=== PATIENT | female | born 2000 | race Caucasian/White ===

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

== ENCOUNTER 2020-04-23 13:19 | Emergency (ER) | payer BC ==
[2020-04-23 13:48] VITALS: BP 139/74; PULSE 72
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
[2020-04-23] MEDS ORDERED: cefTRIAXone 1 GM, Lidocaine 1% 2.1 ML IM ONE ×2 (16:08)
[2020-04-23] MEDS ORDERED: metroNIDAZOLE 250 MG Tab PO ONE (16:10)
[2020-04-23] MEDS ORDERED: Azithromycin 250 MG Tab PO ONE (16:10)
[2020-04-25 12:44] LABS: C.TRACHOMATIS BY TMA Negative (Negative); N.GONORRHOEAE BY TMA Negative (Negative)
== END 2020-04-23 17:01 | disposition home or self-care (01) ==
LOC: DL.ED 13:19
DX: T76.21XA Adult sexual abuse, suspected, initial encounter (principal); F41.9 Anxiety disorder, unspecified; F31.9 Bipolar disorder, unspecified; Z88.1 Allergy status to other antibiotic agents; Z91.018 Allergy to other foods; Z88.6 Allergy status to analgesic agent; Z79.899 Other long term (current) drug therapy
CPT/HCPCS: 80074; 87389; 87491; 87591; 96372; 99283; 99284; A9270; J0696; J2001; 36415

== ENCOUNTER 2020-06-05 00:50 | Emergency (ER) | payer BC ==
[2020-06-05] MEDS ORDERED: Ondansetron 4 MG Tab.DIS PO ONE (00:51)
[2020-06-05 00:58] VITALS: BP 114/94; PULSE 85
[2020-06-05] MEDS ORDERED: Ondansetron 4 MG/2 ML SDV IVPUSH ONE (01:07)
[2020-06-05 01:28] LABS: ANION GAP 15.4 mEq/L (7-13); CHLORIDE,CL 101 mmol/L (98-107); SODIUM,NA 138 mmol/L (136-145)
--- NOTE | 2020-06-05 01:31 | EDM.PDOC ---
"ED HPI GENERAL MEDICAL PROBLEM - General Chief Complaint: Abdominal Pain Stated Complaint: RIGHT SIDE ABD PAIN Time Seen by Provider: 06/05/20 01:18 Source of Information: Reports: Patient, RN, RN Notes Reviewed History Limitations: Reports: No Limitations - History of Present Illness INITIAL COMMENTS - FREE TEXT/NARRATIVE: Patient presents to the ED via personal vehicle with complaints of right lower quadrant pain, nausea, and vomiting. She states the pain began abruptly about one hour ago, and woke her from sleep. She describes the pain as stabbing in nature and relates it is localized the the RLQ; it does not radiate. She had experienced one bout of emesis prior to the initiation of this pain, which she feels was related to a migraine she's had for the past few days, and two bouts of emesis since the pain began. She denies fevers, shaking chills, shortness of breath, chest pain, dyspepsia, dysuria, hematuria, diarrhea, melena, or hematochezia. She does attest to palpitations with the initiation of this pain. She states she has experienced similar pain about three years ago which abruptly stopped with a work-up that was negative for acute processes. She denies changes to her medications. She states she hasn't eaten much over the last few days, but did have some crackers this evening due to nausea from her migraine. Right Lower Abdomen Pain Score (Numeric/FACES): 8 - Related Data Allergies Allergy/AdvReac Type Severity Reaction Status Date / Time amoxicillin Allergy Mild Rash Verified 06/05/20 01:02 gluten Allergy Mild stomach Verified 06/05/20 01:02 pain ibuprofen AdvReac vomiting, Verified 06/05/20 01:02 dizzy Home Meds: Home Meds Erenumab-Aooe [Aimovig Autoinjector] 140 mg SQ Q30D 04/23/20 [History] Venlafaxine HCl [Venlafaxine ER] 150 mg PO DAILY 04/23/20 [History] atenoloL [Atenolol] 25 mg PO DAILY 04/23/20 [History] lamoTRIgine [Lamotrigine] 50 mg PO DAILY 04/23/20 [History] lamoTRIgine [Lamotrigine] 200 mg PO DAILY 04/23/20 [History] norgestimate-ethinyl estradioL [Estarylla 0.25-0.035 mg Tablet] 1 tab PO ASDIRECTED 04/23/20 [History] Desipramine HCl 25 mg PO QPM 06/05/20 [History] Mometasone/Formoterol [Dulera 200 Mcg/5 Mcg Inhaler] 8.8 gm IH BID 06/05/20 [History] Past Medical History - Past Health History Medical/Surgical History: Denies Medical/Surgical History HEENT History: Reports: None Cardiovascular History: Reports: Other (See Below) Other Cardiovascular History: Pots Syndrome (Postural Orthostatic tachycardia syndrome) Respiratory History: Reports: Asthma Gastrointestinal History: Reports: Other (See Below) Other Gastrointestinal History: Gastroparesis Genitourinary History: Reports: None SYNOPTIC METEOROLOGIST History: Reports: Other (See Below) Other SYNOPTIC METEOROLOGIST History: ovarian cyst Musculoskeletal History: Reports: Fibromyalgia, Other (See Below) Other Musculoskeletal History: Lawanda-Damlos Syndrome Neurological History: Reports: None Psychiatric History: Reports: Anxiety, Bipolar, Depression, PTSD Endocrine/Metabolic History: Reports: Obesity/BMI 30+ Hematologic History: Reports: None Immunologic History: Reports: None Oncologic (Cancer) History: Reports: None Dermatologic History: Reports: None - Past Surgical History GI Surgical History: Reports: Cholecystectomy Other GI Surgeries/Procedures: September 2019 Social & Family History - Family History Family Medical History: No Pertinent Family History - Tobacco Use Tobacco Use Status *Q: Never Tobacco User Second Hand Smoke Exposure: No - Caffeine Use Caffeine Use: Reports: Coffee, Soda, Tea - Recreational Drug Use Recreational Drug Use: No - Living Situation & Occupation Living situation: Reports: with Family ED ROS GENERAL - Review of Systems Review Of Systems: Comprehensive ROS is negative, except as noted in HPI. ED EXAM, GI/ABD - Physical Exam Exam: See Below Exam Limited By: No Limitations General Appearance: Alert, WD/WN, No Apparent Distress Eyes: Bilateral: Normal Appearance, EOMI Respiratory/Chest: No Respiratory Distress, Lungs Clear, Normal Breath Sounds, No Accessory Muscle Use, Chest Non-Tender Cardiovascular: Normal Peripheral Pulses, Regular Rate, Rhythm, No Edema, No Gallop, No JVD, No Murmur, No Rub GI/Abdominal Exam: Soft, Non-Tender, No Distention, No Mass, Pelvis Stable, Abnormal Bowel Sounds (Hypoactive x4). No: Guarding, Rigid, Rebound (Female) Exam: Deferred Rectal (Female) Exam: Deferred Back Exam: Normal Inspection, Full Range of Motion, CVA Tenderness (R). No: CVA Tenderness (L) Extremities: Normal Inspection, Normal Range of Motion, Non-Tender, No Pedal Edema, Normal Capillary Refill Neurological: Alert, Oriented, CN II-XII Intact, Normal Cognition, Normal Gait, No Motor/Sensory Deficits Psychiatric: Depressed Mood, Flat Affect Skin Exam: Warm, Dry, Intact, Normal Color, No Rash. No: Ecchymosis, Erythema, Mottled, Pallor, Petechiae Course - Vital Signs Last Recorded V/S: Last Vital Signs Temp 96.8 F L 06/05/20 00:52 Pulse 85 06/05/20 00:52 Resp 18 06/05/20 00:52 BP 114/94 H 06/05/20 00:52 Pulse Ox 97 06/05/20 00:52 - Orders/Labs/Meds Orders: Active Orders 24 hr Category Date Time Status Sodium Chloride 0.9% [Normal Saline] 1,000 ml Med 06/05/20 02:41 Active IV .BOLUS Medication Orders Sodium Chloride (Normal Saline) 1,000 mls @ 999 mls/hr IV .BOLUS ONE Stop: 06/05/20 03:41 Last Admin: 06/05/20 02:46 Dose: 999 mls/hr Documented by: ROMEL Labs: Laboratory Tests 06/05/20 06/05/20 06/05/20 Range/Units 00:55 00:55 00:55 WBC (5.0-10.0) 10^3/uL RBC (4.2-5.4) 10^6/uL Hgb (12.0-16.0) g/dL Hct (37.0-47.0) % MCV (80-100) fL MCH (27.0-34.0) pg MCHC (33.0-35.0) g/dL Plt Count (150-450) 10^3/uL Neut % (Auto) (42.2-75.2) % Lymph % (Auto) (20.5-50.1) % [place] % (Auto) (2-8) % Eos % (Auto) (1.0-3.0) % Baso % (Auto) (0.0-1.0) % Sodium (136-145) mmol/L Potassium (3.5-5.1) mmol/L Chloride (98-107) mmol/L Carbon Dioxide (21-32) mmol/L Anion Gap (7-13) mEq/L BUN (7-18) mg/dL Creatinine (0.55-1.02) mg/dL Est Cr Clr Drug Dosing mL/min Estimated GFR (MDRD) BUN/Creatinine Ratio (No establ ref range) Glucose (74-99) mg/dL Hemoglobin A1c (<5.7) % Calcium (8.5-10.1) mg/dL Phosphorus (2.6-4.7) mg/dL Magnesium (1.8-2.4) mg/dL Total Bilirubin (0.2-1.0) mg/dL AST (15-37) U/L ALT (14-59) U/L Alkaline Phosphatase (46-116) U/L C-Reactive Protein (0.0-0.9) mg/dL Total Protein (6.4-8.2) g/dL Albumin (3.4-5.0) g/dL Globulin Albumin/Globulin Ratio Urine Color Dark yellow (YELLOW) Urine Appearance Slightly cloudy (CLEAR) Urine pH 5.5 (5.0-9.0) Ur Specific Decker >= 1.030 (1.005-1.030) Urine Protein 30 H (NEGATIVE) Urine Glucose (UA) Negative (NEGATIVE) Urine Ketones Trace H (NEGATIVE) Urine Occult Blood Negative (NEGATIVE) Urine Nitrite Negative (NEGATIVE) Urine Bilirubin Negative (NEGATIVE) Urine Urobilinogen 0.2 (0.2-1.0) mg/dL Ur Leukocyte Esterase Negative (NEGATIVE) Urine RBC 0-5 /HPF Urine WBC 0-5 (0-5/HPF) /HPF Ur Epithelial Cells Few (NOT SEEN) /HPF Calcium Oxalate Crystal Many H (NOT SEEN) /HPF Amorphous Sediment Occasional (NOT SEEN) /HPF Urine Bacteria Rare (0-FEW/HPF) /HPF Urine Mucus Few H (NOT SEEN) /LPF Urine HCG, Qual Negative Urine Opiates Screen Negative (NEGATIVE) Ur Oxycodone Screen Negative (NEGATIVE) Urine Methadone Screen Negative (NEGATIVE) Ur Barbiturates Screen Negative (NEGATIVE) U Tricyclic Antidepress Positive H (NEGATIVE) Ur Phencyclidine Scrn Positive H (NEGATIVE) Ur Amphetamine Screen Negative (NEGATIVE) U Methamphetamines Scrn Negative (NEGATIVE) Urine MDMA Screen Negative (NEGATIVE) U Benzodiazepines Scrn Positive H (NEGATIVE) Urine Cocaine Screen Negative (NEGATIVE) U Marijuana (THC) Screen Negative (NEGATIVE) Ethyl Alcohol (0) mg/dL 06/05/20 06/05/20 06/05/20 Range/Units 01:03 01:03 01:03 WBC 9.1 (5.0-10.0) 10^3/uL RBC 4.85 (4.2-5.4) 10^6/uL Hgb 14.0 D (12.0-16.0) g/dL Hct 41.1 (37.0-47.0) % MCV 84.7 D (80-100) fL MCH 28.9 (27.0-34.0) pg MCHC 34.1 (33.0-35.0) g/dL Plt Count 352 (150-450) 10^3/uL Neut % (Auto) 61.2 (42.2-75.2) % Lymph % (Auto) 30.4 (20.5-50.1) % [place] % (Auto) 7.8 (2-8) % Eos % (Auto) 0.4 L (1.0-3.0) % Baso % (Auto) 0.2 (0.0-1.0) % Sodium 138 (136-145) mmol/L Potassium 3.4 L (3.5-5.1) mmol/L Chloride 101 (98-107) mmol/L Carbon Dioxide 25 (21-32) mmol/L Anion Gap 15.4 H (7-13) mEq/L BUN 16 (7-18) mg/dL Creatinine 0.90 (0.55-1.02) mg/dL Est Cr Clr Drug Dosing 90.47 mL/min Estimated GFR (MDRD) > 60 BUN/Creatinine Ratio 17.8 (No establ ref range) Glucose 120 H (74-99) mg/dL Hemoglobin A1c 5.4 (<5.7) % Calcium 8.9 (8.5-10.1) mg/dL Phosphorus 3.0 (2.6-4.7) mg/dL Magnesium 1.9 (1.8-2.4) mg/dL Total Bilirubin 0.3 (0.2-1.0) mg/dL AST 18 (15-37) U/L ALT 25 (14-59) U/L Alkaline Phosphatase 76 (46-116) U/L C-Reactive Protein 2.9 H (0.0-0.9) mg/dL Total Protein 7.9 (6.4-8.2) g/dL Albumin 3.5 (3.4-5.0) g/dL Globulin 4.4 Albumin/Globulin Ratio 0.8 Urine Color (YELLOW) Urine Appearance (CLEAR) Urine pH (5.0-9.0) Ur Specific Decker (1.005-1.030) Urine Protein (NEGATIVE) Urine Glucose (UA) (NEGATIVE) Urine Ketones (NEGATIVE) Urine Occult Blood (NEGATIVE) Urine Nitrite (NEGATIVE) Urine Bilirubin (NEGATIVE) Urine Urobilinogen (0.2-1.0) mg/dL Ur Leukocyte Esterase (NEGATIVE) Urine RBC /HPF Urine WBC (0-5/HPF) /HPF Ur Epithelial Cells (NOT SEEN) /HPF Calcium Oxalate Crystal (NOT SEEN) /HPF Amorphous Sediment (NOT SEEN) /HPF Urine Bacteria (0-FEW/HPF) /HPF Urine Mucus (NOT SEEN) /LPF Urine HCG, Qual Urine Opiates Screen (NEGATIVE) Ur Oxycodone Screen (NEGATIVE) Urine Methadone Screen (NEGATIVE) Ur Barbiturates Screen (NEGATIVE) U Tricyclic Antidepress (NEGATIVE) Ur Phencyclidine Scrn (NEGATIVE) Ur Amphetamine Screen (NEGATIVE) U Methamphetamines Scrn (NEGATIVE) Urine MDMA Screen (NEGATIVE) U Benzodiazepines Scrn (NEGATIVE) Urine Cocaine Screen (NEGATIVE) U Marijuana (THC) Screen (NEGATIVE) Ethyl Alcohol < 3 (0) mg/dL Meds: Medications Generic Name Dose Route Start Last Admin Trade Name Freq PRN Reason Stop Dose Admin Sodium Chloride 1,000 mls @ 999 mls/hr 06/05/20 02:41 06/05/20 02:46 Normal Saline IV 06/05/20 03:41 999 mls/hr .BOLUS ONE Administration Discontinued Medications Generic Name Dose Route Start Last Admin Trade Name Freq PRN Reason Stop Dose Admin Hydromorphone HCl 1 mg 06/05/20 01:40 06/05/20 01:44 Dilaudid IVPUSH 06/05/20 01:41 1 mg ONETIME ONE Administration Metoclopramide HCl 10 mg 06/05/20 02:45 06/05/20 02:48 Reglan IVPUSH 06/05/20 02:46 10 mg ONETIME ONE Administration Ondansetron HCl 4 mg 06/05/20 01:07 06/05/20 01:12 Zofran IVPUSH 06/05/20 01:08 4 mg ONETIME ONE Administration Ondansetron HCl Confirm 06/05/20 02:56 Zofran Odt Administered 06/05/20 02:57 Dose 12 mg .ROUTE .STK-MED ONE Tamsulosin HCl 0.4 mg 06/05/20 02:41 06/05/20 02:46 Flomax PO 06/05/20 02:42 0.4 mg ONETIME ONE Administration - Radiology Interpretation Free Text/Narrative:: [facility] Final Radiology Report Call: [phone] assistance Online chat: [email or web address] Name: OWEN ADEN Age: 19Years F Date: 06/05/2020 SSN: -- : 2000 Study: CT ABDOMEN PELVIS WO CONT Requesting Physician: Anai Hodges Images: [id number] Addl Studies: Provided Clinical History: RLQ pain; R CVA pain Contrast: Without Contrast Medium: Contrast Amount: Contrast Method: Page 1 of 2 PROCEDURE INFORMATION: Exam: CT Abdomen And Pelvis Without Contrast Exam date and time: 06/05/2020 1:51 AM Age: 19 years old Clinical indication: Other: Rlq pain; R CVA pain TECHNIQUE: Imaging protocol: Computed tomography of the abdomen and pelvis without contrast. Radiation optimization: All CT scans at this facility use at least one of these dose optimization techniques: automated exposure control; mA and/or kV adjustment per patient size (includes targeted exams where dose is matched to clinical indication); or iterative reconstruction. COMPARISON: No relevant prior studies available. FINDINGS: Liver: Normal. No mass. Gallbladder and bile ducts: Normal. No calcified stones. No ductal dilation. Pancreas: Normal. No ductal dilation. Spleen: Normal. No splenomegaly. Adrenal glands: Normal. No mass. Kidneys and ureters: The right kidney appears to be slightly enlarged and lower in attenuation within the left kidney suggesting there could be renal edema. Correlate for possible pyelonephritis. No hydronephrosis or stone identified. Stomach and bowel: Unremarkable. No obstruction. No mucosal thickening. Appendix: No evidence of appendicitis. Intraperitoneal space: Unremarkable. No free air. No significant fluid collection. Vasculature: Unremarkable. No abdominal aortic aneurysm. Lymph nodes: Unremarkable. No enlarged lymph nodes. Urinary bladder: Unremarkable as visualized. OWEN ADEN | Final Radiology Report CONFIDENTIALITY STATEMENT This report is intended only for use by the referring physician, and only in accordance with law. If you received this in error, call [phone]. Page 2 of 2 Reproductive: Unremarkable as visualized. Bones/joints: Unremarkable. No acute fracture. Soft tissues: Unremarkable. IMPRESSION: 1. Possible right-sided pyelonephritis. No hydronephrosis or stone identified. Thank you for allowing us to participate in the care of your patient. Dictated and Authenticated by: Saad Rodgers MD 06/05/2020 2:29 AM Central Time ([place] & [place]) - Re-Assessments/Exams Free Text/Narrative Re-Assessment/Exam: 06/05/20 Patient resting comfortably following analgesic and antiemetic. CT unremarkable for obstruction or hydronephrosis, but right kidney is mildly enlarged when compared to the left. Given calcium oxylate in urine and elevated CRP in conjunction with her physical exam, will treat for kidney stone. Patient given Flomax and NS 1L bolus x1 here and sent home with Flomax and Zofran. Patient instructed to follow up in clinic in 3 days to recheck blood work, or sooner should she develop dysuria, hematuria, fever, or shaking chills. Patient verbalized understanding and agreement with the plan of care. Departure - Departure Time of Disposition: 03:21 Disposition: Home, Self-Care 01 Condition: Good Clinical Impression: Calcium oxalate crystals present in urine, Abdominal pain, RLQ (right lower quadrant) Vomiting Qualifiers: Vomiting type: unspecified Vomiting Intractability: non-intractable Nausea presence: with nausea Qualified Code(s): R11.2 - Nausea with vomiting, unspecified - Discharge Information *PRESCRIPTION DRUG MONITORING PROGRAM REVIEWED*: Not Applicable *COPY OF PRESCRIPTION DRUG MONITORING REPORT IN PATIENT BABS: Not Applicable Instructions: Nausea and Vomiting, Adult, [id number] Forms: ED Department Discharge Additional Instructions: Rx: Ondansetron Rx: Flomax Drink a lot of water to stay hydrated and flush out kidneys. Follow up with your primary care provider in three days to recheck blood work, or sooner should you develop worsening abdominal pain, pain with urination, blood in your urine, fever, or shaking chills. You may take acetaminophen (Tylenol) 650 mg every six hours, as pain persists. Sepsis Event Note (ED) - Evaluation Sepsis Screening Result: No Definite Risk - Focused Exam Vital Signs: Vital Signs Temp Pulse Resp BP Pulse Ox 06/05/20 00:52 96.8 F L 85 18 114/94 H 97 - My Orders Last 24 Hours: My Active Orders 06/05/20 02:41 Sodium Chloride 0.9% [Normal Saline] 1,000 ml IV .BOLUS - Assessment/Plan Last 24 Hours: My Active Orders 06/05/20 02:41 Sodium Chloride 0.9% [Normal Saline] 1,000 ml IV .BOLUS"
[2020-06-05] MEDS ORDERED: HYDROmorphone 1 MG/ML Syringe IVPUSH ONE (01:40)
[2020-06-05 01:53] LABS: HEMOGLOBIN A1C 5.4 % (<5.7)
--- NOTE | 2020-06-05 02:29 | CT ---
PROCEDURE INFORMATION: Exam: CT Abdomen And Pelvis Without Contrast Exam date and time: 06/05/2020 1:51 AM Age: 19 years old Clinical indication: Other: Rlq pain; R CVA pain TECHNIQUE: Imaging protocol: Computed tomography of the abdomen and pelvis without contrast. Radiation optimization: All CT scans at this facility use at least one of these dose optimization techniques: automated exposure control; mA and/or kV adjustment per patient size (includes targeted exams where dose is matched to clinical indication); or iterative reconstruction. COMPARISON: No relevant prior studies available. FINDINGS: Liver: Normal. No mass. Gallbladder and bile ducts: Normal. No calcified stones. No ductal dilation. Pancreas: Normal. No ductal dilation. Spleen: Normal. No splenomegaly. Adrenal glands: Normal. No mass. Kidneys and ureters: The right kidney appears to be slightly enlarged and lower in attenuation within the left kidney suggesting there could be renal edema. Correlate for possible pyelonephritis. No hydronephrosis or stone identified. Stomach and bowel: Unremarkable. No obstruction. No mucosal thickening. Appendix: No evidence of appendicitis. Intraperitoneal space: Unremarkable. No free air. No significant fluid collection. Vasculature: Unremarkable. No abdominal aortic aneurysm. Lymph nodes: Unremarkable. No enlarged lymph nodes. Urinary bladder: Unremarkable as visualized. Reproductive: Unremarkable as visualized. Bones/joints: Unremarkable. No acute fracture. Soft tissues: Unremarkable. IMPRESSION: 1. Possible right-sided pyelonephritis. No hydronephrosis or stone identified.
[2020-06-05] MEDS ORDERED: Tamsulosin 0.4 MG Cap.ER PO ONE (02:41)
[2020-06-05] MEDS ORDERED: Sodium Chloride 0.9% 1,000 ML IV ONE (02:41)
[2020-06-05] MEDS ORDERED: Metoclopramide 10 MG/2 ML SDV IVPUSH ONE (02:45)
[2020-06-05] MEDS ORDERED: Ondansetron 4 MG Tab.DIS ONE (02:56)
== END 2020-06-05 03:50 | disposition home or self-care (01) ==
LOC: DL.ED 00:50
DX: R10.31 Right lower quadrant pain (principal); R11.2 Nausea with vomiting, unspecified; R82.998 Other abnormal findings in urine; J45.909 Unspecified asthma, uncomplicated; F41.9 Anxiety disorder, unspecified; F31.9 Bipolar disorder, unspecified; E66.9 Obesity, unspecified; Z68.41 Body mass index [BMI] 40.0-44.9, adult; Z88.6 Allergy status to analgesic agent; Z88.1 Allergy status to other antibiotic agents; Z91.018 Allergy to other foods; Z79.899 Other long term (current) drug therapy
CPT/HCPCS: 36415; 74176; 80053; 80305; 80307; 81001; 81025; 83036; 83735; 84100; 85025; 86140; 96374; 96375; 99284; A9270; J1170; J2405; J2765; J7030

== ENCOUNTER 2020-08-02 12:22 | Emergency (ER) | payer BC, MEDICAID ==
[2020-08-02 12:38] VITALS: BP 130/63; PULSE 75
[2020-08-02 12:59] LABS: ANION GAP 14.7 mEq/L (7-13); CHLORIDE,CL 104 mmol/L (98-107); SODIUM,NA 139 mmol/L (136-145)
[2020-08-02 13:00] LABS: MDMA (ECSTASY), URINE NEGATIVE (NEGATIVE); METHADONE,URINE NEGATIVE (NEGATIVE); METHAMPHETAMINES,URINE NEGATIVE (NEGATIVE)
[2020-08-02 13:01] LABS: AMPHETAMINES,URINE NEGATIVE (NEGATIVE); BARBITURATES,URINE NEGATIVE (NEGATIVE); BENZODIAZEPINE,URINE NEGATIVE (NEGATIVE); OPIATES,URINE NEGATIVE (NEGATIVE); OXYCODONE,URINE NEGATIVE (NEGATIVE); PHENCYCLIDINE,URINE NEGATIVE (NEGATIVE); TCA,URINE NEGATIVE (NEGATIVE)
--- NOTE | 2020-08-02 13:02 | EDM.PDOC ---
ED HPI GENERAL MEDICAL PROBLEM - General Source of Information: Reports: Patient History Limitations: Reports: No Limitations - History of Present Illness Onset: Today Duration: Minutes: (30 min) Quality: Reports: Sharp Improves with: Reports: None Worsens with: Reports: None Associated Symptoms: Reports: Headaches Headache Pain Score (Numeric/FACES): 7 - General Chief Complaint: Syncope Stated Complaint: FAINTING, HEADACHE, CHEST PAIN Time Seen by Provider: 08/02/20 12:52 - History of Present Illness INITIAL COMMENTS - FREE TEXT/NARRATIVE: 20 y/o F c/o 3-4 syncopal episodes last night between 2 and 3 am. Pt was not evaluated by anyone after her syncopal episodes. Today while in class around 12pm pt developed CP center chest non radiating, sharp, constant and 7/10. Pt also c/o diffuse bourgeois since the onset of cp. Pt has had a hx of GI problems for over a year but has had no diagnoses. Pt has had her gall bladder out in September of last year. [facility]. Primary care in [place] with Shivani Hooper. Pts GI issues leaves her with nausea and vomiting on a fairly consistent basis. Denies vision prob, diff swallowing, sob, blood in emesis or stool, diff voiding, diff with urination, injury from syncope. (Jorge Alberto Sprague) - Related Data Allergies Allergy/AdvReac Type Severity Reaction Status Date / Time amoxicillin Allergy Mild Rash Verified 08/02/20 12:42 gluten Allergy Mild stomach Verified 08/02/20 12:42 pain ibuprofen AdvReac vomiting, Verified 08/02/20 12:42 dizzy Home Meds: Home Meds Erenumab-Aooe [Aimovig Autoinjector] 140 mg SQ Q30D 04/23/20 [History] Venlafaxine HCl [Venlafaxine ER] 150 mg PO DAILY 04/23/20 [History] atenoloL [Atenolol] 25 mg PO BEDTIME 04/23/20 [History] norgestimate-ethinyl estradioL [Estarylla 0.25-0.035 mg Tablet] 1 tab PO ASDIRECTED 04/23/20 [History] Mometasone/Formoterol [Dulera 200 Mcg/5 Mcg Inhaler] 2 puff IH BID 06/05/20 [History] Acetaminophen 500 mg PO Q6HR PRN 08/02/20 [History] Albuterol [Proventil Neb Soln] 2.5 mg INH Q4HR PRN 08/02/20 [History] Albuterol [Ventolin HFA] 2 puff INH Q6HR PRN 08/02/20 [History] Cariprazine HCl [Vraylar] 3 mg PO DAILY 08/02/20 [History] Metoclopramide [Reglan] 5 mg PO Q8H 08/02/20 [History] Ondansetron [Ondansetron ODT] 4 mg PO Q6H PRN 08/02/20 [History] Topiramate [Topamax] 50 mg PO DAILY 08/02/20 [History] Past Medical History - Past Health History Medical/Surgical History: Denies Medical/Surgical History HEENT History: Reports: None Cardiovascular History: Reports: Other (See Below) Other Cardiovascular History: Pots Syndrome (Postural Orthostatic tachycardia syndrome) Respiratory History: Reports: Asthma Gastrointestinal History: Reports: Other (See Below) Other Gastrointestinal History: Gastroparesis Genitourinary History: Reports: None MANAGER TRANSIT History: Reports: Other (See Below) Other MANAGER TRANSIT History: ovarian cyst Musculoskeletal History: Reports: Fibromyalgia, Other (See Below) Other Musculoskeletal History: Lawanda-Damlos Syndrome Neurological History: Reports: None Psychiatric History: Reports: Anxiety, Bipolar, Depression, PTSD Endocrine/Metabolic History: Reports: Obesity/BMI 30+ Hematologic History: Reports: None Immunologic History: Reports: None Oncologic (Cancer) History: Reports: None Dermatologic History: Reports: None - Past Surgical History GI Surgical History: Reports: Cholecystectomy Other GI Surgeries/Procedures: September 2019 Social & Family History - Family History Family Medical History: No Pertinent Family History - Caffeine Use Caffeine Use: Reports: Coffee, Soda, Tea - Living Situation & Occupation Living situation: Reports: with Family ED ROS GENERAL - Review of Systems Review Of Systems: Comprehensive ROS is negative, except as noted in HPI. - Physical Exam Exam: See Below Exam Limited By: No Limitations General Appearance: Alert, WD/WN, No Apparent Distress Eye Exam: Bilateral Eye: PERRL Ears: Normal External Exam, Normal Canal, Hearing Grossly Normal, Normal TMs Nose: Normal Inspection, Normal Mucosa, No Blood Throat/Mouth: Normal Inspection, Normal Lips, Normal Teeth, Normal Gums, Normal Oropharynx, Normal Voice, No Airway Compromise Head Exam: Atraumatic, Normocephalic Neck: Normal Inspection, Supple, Non-Tender, Full Range of Motion Respiratory/Chest: No Respiratory Distress, Lungs Clear, Normal Breath Sounds, No Accessory Muscle Use, Chest Non-Tender Cardiovascular: Normal Peripheral Pulses, Regular Rate, Rhythm, No Edema, No Gallop, No JVD, No Murmur, No Rub GI/Abdominal: Normal Bowel Sounds, Soft, Tender (R upper quadrant) (Female) Exam: Deferred Rectal (Female) Exam: Deferred Neuro Exam (Abbreviated): Alert, Oriented, CN II-XII Intact, Normal Cognition, Normal Gait, Normal Reflexes, No Motor/Sensory Deficits Back Exam: Normal Inspection, Full Range of Motion, NT Extremities: Normal Inspection, Normal Range of Motion, Non-Tender, No Pedal Edema, Normal Capillary Refill Psychiatric: Normal Affect, Normal Mood Skin Exam: Warm, Dry, Intact, Normal Color, No Rash Course - Vital Signs Last Recorded V/S: Last Vital Signs Temp 36.4 C 08/02/20 12:33 Pulse 75 08/02/20 12:33 Resp 20 08/02/20 12:33 BP 130/63 08/02/20 12:33 Pulse Ox 98 08/02/20 12:33 - Orders/Labs/Meds Orders: Active Orders 24 hr Category Date Time Status EKG Documentation Completion [RC] STAT Care 08/02/20 12:31 Active Labs: Laboratory Tests 08/02/20 08/02/20 08/02/20 Range/Units 12:32 12:32 12:47 WBC 7.8 (5.0-10.0) 10^3/uL RBC 4.54 (4.2-5.4) 10^6/uL Hgb 13.3 (12.0-16.0) g/dL Hct 39.4 (37.0-47.0) % MCV 86.8 (80-100) fL MCH 29.3 (27.0-34.0) pg MCHC 33.8 (33.0-35.0) g/dL Plt Count 316 (150-450) 10^3/uL Neut % (Auto) 71.7 (42.2-75.2) % Lymph % (Auto) 20.8 (20.5-50.1) % Dyer % (Auto) 7.3 (2-8) % Eos % (Auto) 0.1 L (1.0-3.0) % Baso % (Auto) 0.1 (0.0-1.0) % Sodium 139 (136-145) mmol/L Potassium 3.7 (3.5-5.1) mmol/L Chloride 104 (98-107) mmol/L Carbon Dioxide 24 (21-32) mmol/L Anion Gap 14.7 H (7-13) mEq/L BUN 12 (7-18) mg/dL Creatinine 0.89 (0.55-1.02) mg/dL Est Cr Clr Drug Dosing 90.73 mL/min Estimated GFR (MDRD) > 60 BUN/Creatinine Ratio 13.5 (No establ ref range) Glucose 97 (74-99) mg/dL Calcium 9.1 (8.5-10.1) mg/dL Total Bilirubin 0.2 (0.2-1.0) mg/dL AST 25 (15-37) U/L ALT 40 (14-59) U/L Alkaline Phosphatase 77 (46-116) U/L Troponin I < 0.017 (0.000-0.056) ng/mL Total Protein 7.9 (6.4-8.2) g/dL Albumin 3.6 (3.4-5.0) g/dL Globulin 4.3 Albumin/Globulin Ratio 0.8 Urine Color Yellow (YELLOW) Urine Appearance Slightly cloudy (CLEAR) Urine pH 7.0 (5.0-9.0) Ur Specific Felicity 1.025 (1.005-1.030) Urine Protein Negative (NEGATIVE) Urine Glucose (UA) Negative (NEGATIVE) Urine Ketones Negative (NEGATIVE) Urine Occult Blood Small H (NEGATIVE) Urine Nitrite Negative (NEGATIVE) Urine Bilirubin Negative (NEGATIVE) Urine Urobilinogen 1.0 (0.2-1.0) mg/dL Ur Leukocyte Esterase Negative (NEGATIVE) Urine RBC 0-5 /HPF Urine WBC 0-5 (0-5/HPF) /HPF Ur Epithelial Cells Few (NOT SEEN) /HPF Amorphous Sediment Many H (NOT SEEN) /HPF Urine Bacteria Few (0-FEW/HPF) /HPF Urine Mucus Few H (NOT SEEN) /LPF Urine HCG, Qual Urine Opiates Screen (NEGATIVE) Ur Oxycodone Screen (NEGATIVE) Urine Methadone Screen (NEGATIVE) Ur Barbiturates Screen (NEGATIVE) U Tricyclic Antidepress (NEGATIVE) Ur Phencyclidine Scrn (NEGATIVE) Ur Amphetamine Screen (NEGATIVE) U Methamphetamines Scrn (NEGATIVE) Urine MDMA Screen (NEGATIVE) U Benzodiazepines Scrn (NEGATIVE) Urine Cocaine Screen (NEGATIVE) U Marijuana (THC) Screen (NEGATIVE) 08/02/20 08/02/20 Range/Units 12:47 12:47 WBC (5.0-10.0) 10^3/uL RBC (4.2-5.4) 10^6/uL Hgb (12.0-16.0) g/dL Hct (37.0-47.0) % MCV (80-100) fL MCH (27.0-34.0) pg MCHC (33.0-35.0) g/dL Plt Count (150-450) 10^3/uL Neut % (Auto) (42.2-75.2) % Lymph % (Auto) (20.5-50.1) % Dyer % (Auto) (2-8) % Eos % (Auto) (1.0-3.0) % Baso % (Auto) (0.0-1.0) % Sodium (136-145) mmol/L Potassium (3.5-5.1) mmol/L Chloride (98-107) mmol/L Carbon Dioxide (21-32) mmol/L Anion Gap (7-13) mEq/L BUN (7-18) mg/dL Creatinine (0.55-1.02) mg/dL Est Cr Clr Drug Dosing mL/min Estimated GFR (MDRD) BUN/Creatinine Ratio (No establ ref range) Glucose (74-99) mg/dL Calcium (8.5-10.1) mg/dL Total Bilirubin (0.2-1.0) mg/dL AST (15-37) U/L ALT (14-59) U/L Alkaline Phosphatase (46-116) U/L Troponin I (0.000-0.056) ng/mL Total Protein (6.4-8.2) g/dL Albumin (3.4-5.0) g/dL Globulin Albumin/Globulin Ratio Urine Color (YELLOW) Urine Appearance (CLEAR) Urine pH (5.0-9.0) Ur Specific Felicity (1.005-1.030) Urine Protein (NEGATIVE) Urine Glucose (UA) (NEGATIVE) Urine Ketones (NEGATIVE) Urine Occult Blood (NEGATIVE) Urine Nitrite (NEGATIVE) Urine Bilirubin (NEGATIVE) Urine Urobilinogen (0.2-1.0) mg/dL Ur Leukocyte Esterase (NEGATIVE) Urine RBC /HPF Urine WBC (0-5/HPF) /HPF Ur Epithelial Cells (NOT SEEN) /HPF Amorphous Sediment (NOT SEEN) /HPF Urine Bacteria (0-FEW/HPF) /HPF Urine Mucus (NOT SEEN) /LPF Urine HCG, Qual Negative Urine Opiates Screen Negative (NEGATIVE) Ur Oxycodone Screen Negative (NEGATIVE) Urine Methadone Screen Negative (NEGATIVE) Ur Barbiturates Screen Negative (NEGATIVE) U Tricyclic Antidepress Negative (NEGATIVE) Ur Phencyclidine Scrn Negative (NEGATIVE) Ur Amphetamine Screen Negative (NEGATIVE) U Methamphetamines Scrn Negative (NEGATIVE) Urine MDMA Screen Negative (NEGATIVE) U Benzodiazepines Scrn Negative (NEGATIVE) Urine Cocaine Screen Negative (NEGATIVE) U Marijuana (THC) Screen Negative (NEGATIVE) Meds: Medications Discontinued Medications Generic Name Dose Route Start Last Admin Trade Name Freq PRN Reason Stop Dose Admin Al Hydroxide/Mg Hydroxide 30 ml 08/02/20 13:25 08/02/20 13:31 Gi Cocktail PO 08/02/20 13:26 30 ml ONETIME ONE Administration - Re-Assessments/Exams Free Text/Narrative Re-Assessment/Exam: 08/02/20 13:52 Pt reports complete relief in CP after the administration of GI cocktail. Reviewed previous Abd CT with Doctor Jabari Gonzalez in house and determined previously dictated CT report from May last year was mistakenly read as having a normal gallbladder. Pt reports her gallbladder was taken out in September of last year. Dr Gonzalez confirmed pt has no gall bladder. (Jorge Alberto Sprague) Free Text/Narrative Re-Assessment/Exam: 08/02/20 14:05 I have examined the patient. I have discussed findings and treatment plan with the PA student. I agree with the assessment and plan in the following students note. (Heránn Bunn) Departure - Departure Time of Disposition: 13:57 Condition: Good - Discharge Information *PRESCRIPTION DRUG MONITORING PROGRAM REVIEWED*: Not Applicable *COPY OF PRESCRIPTION DRUG MONITORING REPORT IN PATIENT BABS: Not Applicable - Departure Disposition: Home, Self-Care 01 Clinical Impression: Abdominal pain Qualifiers: Qualified Code(s): S09.90XA - Unspecified injury of head, initial encounter - Discharge Information Instructions: Abdominal Pain, Adult, [id number] Forms: ED Department Discharge Additional Instructions: Follow up with your GI doctor as soon as possible. Follow up with your primary and let him know about your recent symptom development. Sepsis Event Note (ED) - Evaluation Sepsis Screening Result: No Definite Risk - Focused Exam Vital Signs: Vital Signs Temp Pulse Resp BP Pulse Ox 08/02/20 12:33 36.4 C 75 20 130/63 98 - My Orders Last 24 Hours: My Active Orders 08/02/20 12:31 EKG Documentation Completion [RC] STAT - Assessment/Plan Last 24 Hours: My Active Orders 08/02/20 12:31 EKG Documentation Completion [RC] STAT
[2020-08-02] MEDS ORDERED: GI Cocktail Oral Solution 30 ML PO ONE (13:25)
== END 2020-08-02 14:10 | disposition home or self-care (01) ==
LOC: DL.ED 12:22
DX: R10.11 Right upper quadrant pain (principal); J45.909 Unspecified asthma, uncomplicated; E66.9 Obesity, unspecified; Z68.41 Body mass index [BMI] 40.0-44.9, adult; Z88.0 Allergy status to penicillin; Z91.048 Other nonmedicinal substance allergy status; Z88.6 Allergy status to analgesic agent; Z79.899 Other long term (current) drug therapy
CPT/HCPCS: 36415; 80053; 80305; 81001; 81025; 84484; 85025; 93005; 99285; A9270; 99284

== ENCOUNTER 2020-08-13 10:41 | Emergency (ER) | payer BC ==
[2020-08-13] MEDS: Sodium Chloride 0.9% 1,000 ML IV ONE (10:57)
[2020-08-13] MEDS: Activated Charcoal/Water Susp 50 GM/240 ML Tube PO ONE (10:57)
[2020-08-13] MEDS: Sodium Chloride 0.9% 10 ML Syringe FLUSH PRN (10:58)
[2020-08-13 11:02] VITALS: BP 124/76; PULSE 74
[2020-08-13 11:20] LABS: ANION GAP 13.7 mEq/L (7-13); CHLORIDE,CL 103 mmol/L (98-107); SODIUM,NA 140 mmol/L (136-145)
[2020-08-13 11:22] LABS: ACETAMINOPHEN 144 ug/mL (10-30 (Therapeutic)); PTT,PARTIAL THROMBOPLSTIN TIME 27.9 SEC (22.0-34.0)
[2020-08-13] MEDS ORDERED: DEXTROSE 5% IV ONE ×6 (11:34→12:37)
[2020-08-13] MEDS ORDERED: WATER IV ONE ×6 (11:34→12:37)
[2020-08-13] MEDS ORDERED: ACETYLCYSTEINE IV ONE ×6 (11:34→12:37)
[2020-08-13] MEDS: Acetylcysteine 15,000 MG in Dextrose 5% in Water 200 ML IV ONE ×2 (12:02)
--- NOTE | 2020-08-13 12:02 | EDM.PDOCBH ---
ED HPI GENERAL MEDICAL PROBLEM - General Chief Complaint: Behavioral/Psych Stated Complaint: Tylenol overdose Time Seen by Provider: 08/13/20 11:00 Source of Information: Reports: Patient, Old Records, RN, RN Notes Reviewed, Other (College counselor) History Limitations: Reports: No Limitations - History of Present Illness INITIAL COMMENTS - FREE TEXT/NARRATIVE: Pt presented to ER with her college counselor initially reporting that she took 13 tablets of Tylenol 500mg (6500mg) at 0900HRS this morning because she had a bad headache. Later the pt admitted that it may have been approximately 20 tablets of Tylenol 500mg (10,000mg) and that her intent was self harm/suicide. Pt has history of mental illness. Onset: Today Onset Date: 08/13/20 Onset Time: 09:00 Location: Reports: Generalized Associated Symptoms: Reports: No Other Symptoms Abdomen Pain Score (Numeric/FACES): 7 - Related Data Allergies Allergy/AdvReac Type Severity Reaction Status Date / Time amoxicillin Allergy Mild Rash Verified 08/13/20 10:56 gluten Allergy Mild stomach Verified 08/13/20 10:56 pain ibuprofen AdvReac vomiting, Verified 08/13/20 10:56 dizzy Home Meds: Home Meds Erenumab-Aooe [Aimovig Autoinjector] 140 mg SQ Q30D 04/23/20 [History] Venlafaxine HCl [Venlafaxine ER] 150 mg PO DAILY 04/23/20 [History] atenoloL [Atenolol] 25 mg PO BEDTIME 04/23/20 [History] norgestimate-ethinyl estradioL [Estarylla 0.25-0.035 mg Tablet] 1 tab PO ASDIRECTED 04/23/20 [History] Mometasone/Formoterol [Dulera 200 Mcg/5 Mcg Inhaler] 2 puff IH BID 06/05/20 [Hi story] Acetaminophen 500 mg PO Q6HR PRN 08/02/20 [History] Albuterol [Proventil Neb Soln] 2.5 mg INH Q4HR PRN 08/02/20 [History] Albuterol [Ventolin HFA] 2 puff INH Q6HR PRN 08/02/20 [History] Cariprazine HCl [Vraylar] 3 mg PO DAILY 08/02/20 [History] Metoclopramide [Reglan] 5 mg PO Q8H 08/02/20 [History] Ondansetron [Ondansetron ODT] 4 mg PO Q6H PRN 08/02/20 [History] Topiramate [Topamax] 50 mg PO DAILY 08/02/20 [History] Past Medical History - Past Health History Medical/Surgical History: Denies Medical/Surgical History HEENT History: Reports: None Cardiovascular History: Reports: Other (See Below) Other Cardiovascular History: POTS Respiratory History: Reports: Asthma Gastrointestinal History: Reports: Other (See Below) Other Gastrointestinal History: Gastroparesis Genitourinary History: Reports: None R&D ENGINEER History: Reports: Other (See Below) Other R&D ENGINEER History: ovarian cyst Musculoskeletal History: Reports: Fibromyalgia, Other (See Below) 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 Chronic pain. Peroneal Tendinitis Neurological History: Reports: Migraines Psychiatric History: Reports: Anxiety, Bipolar, Depression, Panic Attack, PTSD Endocrine/Metabolic History: Reports: Obesity/BMI 30+ Hematologic History: Reports: None Immunologic History: Reports: None Oncologic (Cancer) History: Reports: None Dermatologic History: Reports: None - Infectious Disease History Infectious Disease History: Reports: None - Past Surgical History Head Surgeries/Procedures: Reports: None GI Surgical History: Reports: Cholecystectomy Other GI Surgeries/Procedures: September 2019 Social & Family History - Family History Family Medical History: No Pertinent Family History - Tobacco Use Tobacco Use Status *Q: Never Tobacco User Second Hand Smoke Exposure: No - Caffeine Use Caffeine Use: Reports: Coffee - Recreational Drug Use Recreational Drug Use: No - Living Situation & Occupation Living situation: Reports: with Family Occupation: Student ED ROS GENERAL - Review of Systems Review Of Systems: Comprehensive ROS is negative, except as noted in HPI. ED EXAM, BEHAVIORAL HEALTH - Physical Exam Exam: See Below Exam Limited By: No Limitations General Appearance: Alert, No Apparent Distress, Obese Eye Exam: Bilateral Eye: EOMI, Normal Inspection (No scleral icterus), PERRL Nose: Normal Inspection, Normal Mucosa, No Blood Throat/Mouth: Normal Inspection, Normal Lips, Normal Teeth, Normal Gums, Normal Oropharynx, Normal Voice, No Airway Compromise Head: Atraumatic, Normocephalic Neck: Normal Inspection, Supple, Non-Tender, Full Range of Motion Respiratory/Chest: No Respiratory Distress, Lungs Clear, Normal Breath Sounds, No Accessory Muscle Use, Chest Non-Tender Cardiovascular: Normal Peripheral Pulses, Regular Rate, Rhythm, No Edema, No Gallop, No JVD, No Murmur, No Rub GI/Abdominal: Normal Bowel Sounds, Soft, Non-Tender, No Organomegaly, No Distention, No Abnormal Bruit, No Mass Back Exam: Normal Inspection Extremities: Normal Inspection, Normal Range of Motion, Non-Tender, Normal Capillary Refill, No Pedal Edema Neurological: Alert, CN II-XII Intact, Normal Gait, No Motor/Sensory Deficits, Oriented x 3 Psychiatric: Normal Cognition, Oriented, Depressed Mood, Flat Affect, Tearful Skin Exam: Warm, Dry, Intact, Normal color, No rash. No: Ecchymosis, Jaundice, Petechiae #1 Interpretation EKG Date: 08/13/20 Time: 11:20 Rhythm: NSR [place]: Normal P-Wave: Present QRS: Normal ST-T: Normal QT: Normal Comparison: NA - No Prior EKG COURSE, BEHAVIORAL HEALTH COMP - Course Vital Signs: Last Vital Signs Temp 96.2 F L 08/13/20 10:58 Pulse 74 08/13/20 10:58 Resp 18 08/13/20 10:58 BP 124/76 08/13/20 10:58 Pulse Ox 100 08/13/20 10:58 Orders, Labs, Meds: Active Orders 24 hr Category Date Time Status EKG 12 Lead [EKG Documentation Completion] [RC] STAT Care 08/13/20 10:44 Active Peripheral IV Care [RC] . DIRECTED Care 08/13/20 10:45 Active Consult to Poison Control [CONS] Stat Cons 08/13/20 11:02 Ordered ACETAMINOPHEN [CHEM] Stat Lab 08/13/20 13:00 Ordered DRUG SCREEN URINE BIORAD [URCHEM] Stat Lab 08/13/20 11:26 Ordered HCG QUALITATIVE,URINE [URCHEM] Stat Lab 08/13/20 11:26 Ordered HEPATIC FUNCTION PANEL,HFP [CHEM] Timed Lab 08/13/20 13:00 Ordered Acetylcysteine [Acetadote 20%] 15,000 mg Med 08/13/20 11:44 Active Dextrose 5% in Water 200 ml IV ONETIME Acetylcysteine [Acetadote 20%] 6,000 mg Med 08/13/20 12:45 Active Dextrose 5% in Water 200 ml IV ONETIME Sodium Chloride 0.9% [Saline Flush] Med 08/13/20 10:45 Active 10 ml FLUSH ASDIRECTED PRN Peripheral IV Insertion Pediatric [OM.PC] Stat Oth 08/13/20 10:45 Ordered Medication Orders Acetylcysteine 15,000 mg/ (Dextrose/Water) 275 mls @ 192.982 mls/hr IV ONETIME ONE; Protocol Stop: 08/13/20 13:08 Last Admin: 08/13/20 12:02 Dose: 192.982 mls/hr Documented by: DIANA Acetylcysteine 6,000 mg/ (Dextrose/Water) 230 mls @ 201.754 mls/hr IV ONETIME ONE; Protocol Stop: 08/13/20 13:45 Sodium Chloride (Saline Flush) 10 ml FLUSH ASDIRECTED PRN PRN Reason: Keep Vein Open Last Admin: 08/13/20 10:58 Dose: 10 ml Documented by: HOWARD Laboratory Tests 08/13/20 08/13/20 08/13/20 Range/Units 10:57 10:57 10:57 WBC 7.6 (5.0-10.0) 10^3/uL RBC 4.88 (4.2-5.4) 10^6/uL Hgb 14.1 (12.0-16.0) g/dL Hct 42.9 (37.0-47.0) % MCV 87.9 (80-100) fL MCH 28.9 (27.0-34.0) pg MCHC 32.9 L (33.0-35.0) g/dL Plt Count 382 (150-450) 10^3/uL Neut % (Auto) 63.0 (42.2-75.2) % Lymph % (Auto) 27.1 (20.5-50.1) % [place] % (Auto) 9.2 H (2-8) % Eos % (Auto) 0.4 L (1.0-3.0) % Baso % (Auto) 0.3 (0.0-1.0) % PT 10.0 (9.0-12.0) SEC INR 1.1 (0.9-1.2) APTT 27.9 (22.0-34.0) SEC Sodium 140 (136-145) mmol/L Potassium 3.7 (3.5-5.1) mmol/L Chloride 103 (98-107) mmol/L Carbon Dioxide 27 (21-32) mmol/L Anion Gap 13.7 H (7-13) mEq/L BUN 17 (7-18) mg/dL Creatinine 0.72 (0.55-1.02) mg/dL Est Cr Clr Drug Dosing 112.15 mL/min Estimated GFR (MDRD) > 60 BUN/Creatinine Ratio 23.6 (No establ ref range) Glucose 112 H (74-99) mg/dL Calcium 9.0 (8.5-10.1) mg/dL Total Bilirubin 0.1 L (0.2-1.0) mg/dL AST 14 L (15-37) U/L ALT 27 (14-59) U/L Alkaline Phosphatase 77 (46-116) U/L Total Protein 7.7 (6.4-8.2) g/dL Albumin 3.6 (3.4-5.0) g/dL Globulin 4.1 Albumin/Globulin Ratio 0.9 Urine Color (YELLOW) Urine Appearance (CLEAR) Urine pH (5.0-9.0) Ur Specific [place] (1.005-1.030) Urine Protein (NEGATIVE) Urine Glucose (UA) (NEGATIVE) Urine Ketones (NEGATIVE) Urine Occult Blood (NEGATIVE) Urine Nitrite (NEGATIVE) Urine Bilirubin (NEGATIVE) Urine Urobilinogen (0.2-1.0) mg/dL Ur Leukocyte Esterase (NEGATIVE) Urine RBC /HPF Urine WBC (0-5/HPF) /HPF Ur Epithelial Cells (NOT SEEN) /HPF Amorphous Sediment (NOT SEEN) /HPF Urine Bacteria (0-FEW/HPF) /HPF Urine Mucus (NOT SEEN) /LPF Urine HCG, Qual Salicylates (2.8-20(Therapeutic)) mg/dL Urine Opiates Screen (NEGATIVE) Ur Oxycodone Screen (NEGATIVE) Urine Methadone Screen (NEGATIVE) Acetaminophen 144 H* (10-30 (Therapeutic)) ug/mL Ur Barbiturates Screen (NEGATIVE) U Tricyclic Antidepress (NEGATIVE) Ur Phencyclidine Scrn (NEGATIVE) Ur Amphetamine Screen (NEGATIVE) U Methamphetamines Scrn (NEGATIVE) Urine MDMA Screen (NEGATIVE) U Benzodiazepines Scrn (NEGATIVE) Urine Cocaine Screen (NEGATIVE) U Marijuana (THC) Screen (NEGATIVE) Ethyl Alcohol < 3 (0) mg/dL 08/13/20 08/13/20 08/13/20 Range/Units 10:57 11:10 11:10 WBC (5.0-10.0) 10^3/uL RBC (4.2-5.4) 10^6/uL Hgb (12.0-16.0) g/dL Hct (37.0-47.0) % MCV (80-100) fL MCH (27.0-34.0) pg MCHC (33.0-35.0) g/dL Plt Count (150-450) 10^3/uL Neut % (Auto) (42.2-75.2) % Lymph % (Auto) (20.5-50.1) % [place] % (Auto) (2-8) % Eos % (Auto) (1.0-3.0) % Baso % (Auto) (0.0-1.0) % PT (9.0-12.0) SEC INR (0.9-1.2) APTT (22.0-34.0) SEC Sodium (136-145) mmol/L Potassium (3.5-5.1) mmol/L Chloride (98-107) mmol/L Carbon Dioxide (21-32) mmol/L Anion Gap (7-13) mEq/L BUN (7-18) mg/dL Creatinine (0.55-1.02) mg/dL Est Cr Clr Drug Dosing mL/min Estimated GFR (MDRD) BUN/Creatinine Ratio (No establ ref range) Glucose (74-99) mg/dL Calcium (8.5-10.1) mg/dL Total Bilirubin (0.2-1.0) mg/dL AST (15-37) U/L ALT (14-59) U/L Alkaline Phosphatase (46-116) U/L Total Protein (6.4-8.2) g/dL Albumin (3.4-5.0) g/dL Globulin Albumin/Globulin Ratio Urine Color (YELLOW) Urine Appearance (CLEAR) Urine pH (5.0-9.0) Ur Specific [place] (1.005-1.030) Urine Protein (NEGATIVE) Urine Glucose (UA) (NEGATIVE) Urine Ketones (NEGATIVE) Urine Occult Blood (NEGATIVE) Urine Nitrite (NEGATIVE) Urine Bilirubin (NEGATIVE) Urine Urobilinogen (0.2-1.0) mg/dL Ur Leukocyte Esterase (NEGATIVE) Urine RBC /HPF Urine WBC (0-5/HPF) /HPF Ur Epithelial Cells (NOT SEEN) /HPF Amorphous Sediment (NOT SEEN) /HPF Urine Bacteria (0-FEW/HPF) /HPF Urine Mucus (NOT SEEN) /LPF Urine HCG, Qual Negative Salicylates < 2.8 L (2.8-20(Therapeutic)) mg/dL Urine Opiates Screen Negative (NEGATIVE) Ur Oxycodone Screen Negative (NEGATIVE) Urine Methadone Screen Negative (NEGATIVE) Acetaminophen (10-30 (Therapeutic)) ug/mL Ur Barbiturates Screen Negative (NEGATIVE) U Tricyclic Antidepress Negative (NEGATIVE) Ur Phencyclidine Scrn Negative (NEGATIVE) Ur Amphetamine Screen Negative (NEGATIVE) U Methamphetamines Scrn Negative (NEGATIVE) Urine MDMA Screen Negative (NEGATIVE) U Benzodiazepines Scrn Negative (NEGATIVE) Urine Cocaine Screen Negative (NEGATIVE) U Marijuana (THC) Screen Negative (NEGATIVE) Ethyl Alcohol (0) mg/dL 08/13/20 Range/Units 11:10 WBC (5.0-10.0) 10^3/uL RBC (4.2-5.4) 10^6/uL Hgb (12.0-16.0) g/dL Hct (37.0-47.0) % MCV (80-100) fL MCH (27.0-34.0) pg MCHC (33.0-35.0) g/dL Plt Count (150-450) 10^3/uL Neut % (Auto) (42.2-75.2) % Lymph % (Auto) (20.5-50.1) % [place] % (Auto) (2-8) % Eos % (Auto) (1.0-3.0) % Baso % (Auto) (0.0-1.0) % PT (9.0-12.0) SEC INR (0.9-1.2) APTT (22.0-34.0) SEC Sodium (136-145) mmol/L Potassium (3.5-5.1) mmol/L Chloride (98-107) mmol/L Carbon Dioxide (21-32) mmol/L Anion Gap (7-13) mEq/L BUN (7-18) mg/dL Creatinine (0.55-1.02) mg/dL Est Cr Clr Drug Dosing mL/min Estimated GFR (MDRD) BUN/Creatinine Ratio (No establ ref range) Glucose (74-99) mg/dL Calcium (8.5-10.1) mg/dL Total Bilirubin (0.2-1.0) mg/dL AST (15-37) U/L ALT (14-59) U/L Alkaline Phosphatase (46-116) U/L Total Protein (6.4-8.2) g/dL Albumin (3.4-5.0) g/dL Globulin Albumin/Globulin Ratio Urine Color Yellow (YELLOW) Urine Appearance Slightly cloudy (CLEAR) Urine pH 5.5 (5.0-9.0) Ur Specific [place] >= 1.030 (1.005-1.030) Urine Protein Negative (NEGATIVE) Urine Glucose (UA) Negative (NEGATIVE) Urine Ketones Negative (NEGATIVE) Urine Occult Blood Moderate H (NEGATIVE) Urine Nitrite Negative (NEGATIVE) Urine Bilirubin Negative (NEGATIVE) Urine Urobilinogen 0.2 (0.2-1.0) mg/dL Ur Leukocyte Esterase Negative (NEGATIVE) Urine RBC 30-40 H /HPF Urine WBC 0-5 (0-5/HPF) /HPF Ur Epithelial Cells Few (NOT SEEN) /HPF Amorphous Sediment Few (NOT SEEN) /HPF Urine Bacteria Few (0-FEW/HPF) /HPF Urine Mucus Occasional (NOT SEEN) /LPF Urine HCG, Qual Salicylates (2.8-20(Therapeutic)) mg/dL Urine Opiates Screen (NEGATIVE) Ur Oxycodone Screen (NEGATIVE) Urine Methadone Screen (NEGATIVE) Acetaminophen (10-30 (Therapeutic)) ug/mL Ur Barbiturates Screen (NEGATIVE) U Tricyclic Antidepress (NEGATIVE) Ur Phencyclidine Scrn (NEGATIVE) Ur Amphetamine Screen (NEGATIVE) U Methamphetamines Scrn (NEGATIVE) Urine MDMA Screen (NEGATIVE) U Benzodiazepines Scrn (NEGATIVE) Urine Cocaine Screen (NEGATIVE) U Marijuana (THC) Screen (NEGATIVE) Ethyl Alcohol (0) mg/dL Medications Generic Name Dose Route Start Last Admin Trade Name Freq PRN Reason Stop Dose Admin Acetylcysteine 15,000 mg/ 275 mls @ 192.982 mls/hr 08/13/20 11:44 08/13/20 12:02 Dextrose/Water IV 08/13/20 13:08 192.982 mls/hr ONETIME ONE Administration Protocol Acetylcysteine 6,000 mg/ 230 mls @ 201.754 mls/hr 08/13/20 12:45 Dextrose/Water IV 08/13/20 13:45 ONETIME ONE Protocol Sodium Chloride 10 ml 08/13/20 10:45 08/13/20 10:58 Saline Flush FLUSH 10 ml ASDIRECTED PRN Administration Keep Vein Open Discontinued Medications Generic Name Dose Route Start Last Admin Trade Name Tin PRN Reason Stop Dose Admin Charcoal 50 gm 08/13/20 10:44 08/13/20 10:57 Actidose-Aqua PO 08/13/20 10:45 50 gm ONETIME ONE Administration Sodium Chloride 1,000 mls @ 999 mls/hr 08/13/20 10:45 08/13/20 10:57 Normal Saline IV 08/13/20 11:45 999 mls/hr .BOLUS ONE Administration Acetylcysteine 5,600 mg/ 228 mls @ 200 mls/hr 08/13/20 12:37 Dextrose/Water IV 08/13/20 13:36 ONETIME ONE Protocol Discharge vs Psych Eval/Treatment:: 08/13/20 12:20 Pt with Tylenol ingestion of approx. 10,000mg which is an indication for NAC IV therapy. No psychiatric consultation available here. Dr. Verduzco (hospitalist) advises to transfer the pt to [facility] in [place]. Departure - Departure Time of Disposition: 12:36 Disposition: DC/Tfer to Acute Hospital 02 Condition: Serious Clinical Impression: Acetaminophen overdose Qualifiers: Encounter type: initial encounter Injury intent: intentional self-harm Qualified Code(s): T39.1X2A - Poisoning by 4-Aminophenol derivatives, intentional self-harm, initial encounter Suicide attempt by acetaminophen overdose Qualifiers: Encounter type: initial encounter Qualified Code(s): T39.1X2A - Poisoning by 4- Aminophenol derivatives, intentional self-harm, initial encounter - Discharge Information *PRESCRIPTION DRUG MONITORING PROGRAM REVIEWED*: No *COPY OF PRESCRIPTION DRUG MONITORING REPORT IN PATIENT BABS: No Forms: ED Department Discharge, Interfacility Transfer EMTALA Sepsis Event Note (ED) - Evaluation Sepsis Screening Result: No Definite Risk - Focused Exam Vital Signs: Vital Signs Temp Pulse Resp BP Pulse Ox 08/13/20 10:58 96.2 F L 74 18 124/76 100 - My Orders Last 24 Hours: My Active Orders 08/13/20 10:44 EKG 12 Lead [EKG Documentation Completion] [RC] STAT 08/13/20 10:45 Peripheral IV Care [RC] . DIRECTED Sodium Chloride 0.9% [Saline Flush] 10 ml FLUSH ASDIRECTED PRN Peripheral IV Insertion Pediatric [OM.PC] Stat 08/13/20 11:02 Consult to Poison Control [CONS] Stat 08/13/20 11:26 DRUG SCREEN URINE BIORAD [URCHEM] Stat HCG QUALITATIVE,URINE [URCHEM] Stat 08/13/20 11:44 Acetylcysteine [Acetadote 20%] 15,000 mg Dextrose 5% in Water 200 ml IV ONETIME 08/13/20 12:45 Acetylcysteine [Acetadote 20%] 6,000 mg Dextrose 5% in Water 200 ml IV ONETIME 08/13/20 13:00 ACETAMINOPHEN [CHEM] Stat HEPATIC FUNCTION PANEL,HFP [CHEM] Timed - Assessment/Plan Last 24 Hours: My Active Orders 08/13/20 10:44 EKG 12 Lead [EKG Documentation Completion] [RC] STAT 08/13/20 10:45 Peripheral IV Care [RC] . DIRECTED Sodium Chloride 0.9% [Saline Flush] 10 ml FLUSH ASDIRECTED PRN Peripheral IV Insertion Pediatric [OM.PC] Stat 08/13/20 11:02 Consult to Poison Control [CONS] Stat 08/13/20 11:26 DRUG SCREEN URINE BIORAD [URCHEM] Stat HCG QUALITATIVE,URINE [URCHEM] Stat 08/13/20 11:44 Acetylcysteine [Acetadote 20%] 15,000 mg Dextrose 5% in Water 200 ml IV ONETIME 08/13/20 12:45 Acetylcysteine [Acetadote 20%] 6,000 mg Dextrose 5% in Water 200 ml IV ONETIME 08/13/20 13:00 ACETAMINOPHEN [CHEM] Stat HEPATIC FUNCTION PANEL,HFP [CHEM] Timed
[2020-08-13] MEDS: WATER IV ONE ×2 (13:09)
[2020-08-13] MEDS: DEXTROSE 5% IV ONE ×2 (13:09)
[2020-08-13] MEDS: ACETYLCYSTEINE IV ONE ×2 (13:09)
== END 2020-08-13 13:24 ==
LOC: DL.ED 10:41
DX: T39.1X2A Poisoning by 4-Aminophenol derivatives, intentional self-harm, initial encounter (principal); J45.909 Unspecified asthma, uncomplicated; G43.909 Migraine, unspecified, not intractable, without status migrainosus; E66.9 Obesity, unspecified; Z68.41 Body mass index [BMI] 40.0-44.9, adult; Z88.0 Allergy status to penicillin; Z91.018 Allergy to other foods; Z88.6 Allergy status to analgesic agent
CPT/HCPCS: 36415; 80053; 80076; 80143; 80179; 80305; 80307; 81001; 81025; 85025; 85610; 85730; 93005; 96365; 99285; J0132; J7030; J7060

== ENCOUNTER 2020-10-09 08:35 | Observation (INO) | payer BC, MEDICAID ==
[2020-10-09] MEDS ORDERED: Docusate Sodium 100 MG Cap PO PRN (09:43)
[2020-10-09] MEDS ORDERED: Promethazine 25 MG Tab PO PRN (09:43)
--- NOTE | 2020-10-09 10:20 | PCM.HP ---
<Samantha Alvarado Spring - Last Filed: 10/09/20 11:08> H&P History of Present Illness - General Date of Service: 10/09/20 Admit Problem/Dx: Admission Diagnosis/Problem Admission Diagnosis/Problem Vomiting Source of Information: Patient, Old Records History Limitations: Reports: No Limitations - History of Present Illness Initial Comments - Free Text/Narative: Patient is a 20-year-old female with PMH significant for Bipolar I with suicidal ideation and self-harm in the past (last psychiatric admission for suicide attempt about 2 months ago) Lawanda-Danlos, POTS disease, and fibromyalgia who presents for observation of reported intractable emesis. She states that issues with nausea and vomiting started initially in March or April of 2020 and have been progressively worsening over time to the point that now she vomits every time she eats or drinks anything. Sometimes she can tolerate applesauce or pudding, but less so now than even the recent past. Even sips of water will cause her to vomit. Emesis is non-bloody, non-bilious. Worsened by any oral intake and associated with feeling bloated and abdominal pain, described as sharp/stabbing and located in the LUQ with radiation from right to left, rated 7/10 at its worse but sometimes remits. Pain waxes and wanes but is always there. Pain aggravated by eating and any movement/activity, alleviated by not eating or drinking. Anti-emetics initially were helpful but have become less effective over time. Patient states that nausea and vomiting has increased more- so in the past 4 weeks and she has been consistently drinking <16 ounces per day and vomiting after every meal. Her last meal was mashed potatoes yesterday evening, which she threw up. She states she did not drink even 16 ounces total yesterday and has not drank anything today. States she has been evaluated by GI but has not been diagnosed with anything. Has undergone gastric emptying test and mesenteric ultrasound, both of which were negative. Onset of Symptoms: Reports: Gradual Symptom Onset Date: 03/27/20 (Estimated Mar-Apr 2020) Duration of Symptoms: Reports: Chronic, Getting Worse, Intermittent, Waxing/Waning. Denies: Improving Location: Reports: Abdomen Quality: Reports: Ache, Sharp, Stabbing Severity: Severe Improves with: Reports: Medication (Anti-nausea medications are becoming less effective over time) Worsens with: Reports: Eating, Movement Context: Reports: Other (Associated with oral intake only) Associated Symptoms: Reports: Loss of Appetite, Malaise, Nausea/Vomiting, Syncope, Weakness - Related Data Allergies/Adverse Reactions: Allergies Allergy/AdvReac Type Severity Reaction Status Date / Time amoxicillin Allergy Mild Rash Verified 10/09/20 09:51 gluten Allergy Mild stomach Verified 10/09/20 09:51 pain ibuprofen AdvReac vomiting, Verified 10/09/20 09:51 dizzy Home Medications: Home Meds Erenumab-Aooe [Aimovig Autoinjector] 140 mg SQ Q30D 04/23/20 [History] Venlafaxine HCl [Venlafaxine ER] 150 mg PO DAILY 04/23/20 [History] atenoloL [Atenolol] 25 mg PO BEDTIME 04/23/20 [History] norgestimate-ethinyl estradioL [Estarylla 0.25-0.035 mg Tablet] 1 tab PO ASDIRECTED 04/23/20 [History] Mometasone/Formoterol [Dulera 200 Mcg/5 Mcg Inhaler] 2 puff IH BID 06/05/20 [History] Acetaminophen 500 mg PO Q6HR PRN 08/02/20 [History] Albuterol [Proventil Neb Soln] 2.5 mg INH Q4HR PRN 08/02/20 [History] Albuterol [Ventolin HFA] 2 puff INH Q6HR PRN 08/02/20 [History] Metoclopramide [Reglan] 5 mg PO Q8H 08/02/20 [History] Ondansetron [Ondansetron ODT] 4 mg PO Q6H PRN 08/02/20 [History] Topiramate [Topamax] 50 mg PO DAILY 08/02/20 [History] Past Medical History HEENT History: Reports: None Cardiovascular History: Reports: Other (See Below) Other Cardiovascular History: POTS Respiratory History: Reports: Asthma Genitourinary History: Reports: None PATENT EXAMINER History: Reports: Other (See Below) Other OB/BYN History: ovarian cyst Musculoskeletal History: Reports: Fibromyalgia, Other (See Below) 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 Chronic pain. Peroneal Tendinitis Neurological History: Reports: Migraines Psychiatric History: Reports: Anxiety, Bipolar, Depression, Panic Attack, PTSD Endocrine/Metabolic History: Reports: Obesity/BMI 30+ Hematologic History: Reports: None Immunologic History: Reports: None Oncologic (Cancer) History: Reports: None Dermatologic History: Reports: None - Infectious Disease History Infectious Disease History: Reports: None - Past Surgical History Head Surgeries/Procedures: Reports: None HEENT Surgical History: Reports: Adenoidectomy, Tonsillectomy GI Surgical History: Reports: Cholecystectomy, EGD (Revealed mild gastritis) Other GI Surgeries/Procedures: September 2019 Other Musculoskeletal Surgeries/Procedures:: Left foot surgery for perineal tendonitis - Past Imaging History Past Imaging History: Reports: CAT Scan, MRI, PFT, Ultrasound (Mesenteric- negative), Xray, Other (See Below) (Gastric emptying study- negative) Social & Family History - Family History Family Medical History: No Pertinent Family History Psychiatric: Reports: None Oncologic: Reports: Ovarian - Tobacco Use Tobacco Use Status *Q: Never Tobacco User Tobacco Use Within Last Twelve Months: No Second Hand Smoke Exposure: No - Caffeine Use Caffeine Use: Reports: Coffee Caffeine Use Comment: used to currently not since stomach problems began last year - Recreational Drug Use Recreational Drug Use: No - Living Situation & Occupation Living situation: Reports: with Family (Had to move back home because of stomach issues) 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 Denies: Fever, Chills, Diaphoresis, Weight Gain HEENT: Reports: Glasses. Denies: Dysphasia, Ear Pain, Eye Pain, Hearing Changes, Sinus Congestion, Sore Throat, Visual Changes Pulmonary: Denies: Shortness of Breath, Pleuritic Chest Pain, Cough, Hemoptysis Cardiovascular: Reports: Lightheadedness. Denies: Chest Pain, Palpitations, Dyspnea on Exertion, Edema, Syncope Gastrointestinal: Reports: Abdominal Pain, Anorexia, Decreased Appetite, Distension, Nausea, Vomiting. Denies: Black Stool, Bloody Stool, Constipation, Diarrhea, Difficulty Swallowing, Hematemesis, Hematochezia, Melena Genitourinary: Denies: Dysuria, Frequency, Burning, Pain, Urgency, Hematuria, Discharge, Abnormal Menses, Flank Pain Musculoskeletal: Reports: Joint Pain, Muscle Pain Skin: Denies: Diaphoresis, Dryness, Rash, Change in Color, Lesions Psychiatric: Reports: Other (Patient states her mood is doing much better than earlier this year and does not believe mood is a contributing factor to current symptoms). Denies: Confusion, Depression, Anxiety, Agitation, Suicidal Ideation Neurological: Reports: Weakness. Denies: Pre-Existing Deficit, Syncope, Trouble Speaking, Gait Disturbance Hematologic/Lymphatic: Denies: Easy Bleeding, Easy Bruising Exam - Exam Exam: See Below - Vital Signs Vital Signs: Last Vital Signs Temp 97.6 F 10/09/20 09:00 Pulse 80 10/09/20 09:00 Resp 18 10/09/20 09:00 BP 114/68 10/09/20 09:00 Pulse Ox 99 10/09/20 09:00 Weight: 111.947 kg - Exam Quality Assessment: No: Supplemental Oxygen, Central Line/PICC, Urinary Catheter, DVT Prophylaxis General: Alert, Oriented, Cooperative (In no acute distress, appears comfortable, pleasant) HEENT: Conjunctiva Clear, EACs Clear, EOMI, Hearing Intact, Mucosa Moist & [place], Nares Patent, Normal Nasal Septum, Posterior Pharynx Clear, Pupils Equal, Pupils Reactive, Glasses, Other (Mucous membranes are moist) Neck: Supple, Trachea Midline Lungs: Clear to Auscultation, Normal Respiratory Effort Cardiovascular: Regular Rate, Regular Rhythm, Normal S1, Normal S2 GI/Abdominal Exam: Normal Bowel Sounds, Soft, Non-Tender, No Organomegaly, No Distention, No Abnormal Bruit, No Mass, Pelvis Stable, Other (Obese). No: Guarding, Rigid, Rebound (Female) Exam: Deferred Rectal (Female) Exam: Deferred Back Exam: Normal Inspection, Full Range of Motion Extremities: Normal Inspection, Normal Range of Motion, Non-Tender, No Pedal Edema, Normal Capillary Refill. No: Joint Swelling Peripheral Pulses: 2+: Radial (L), Radial (R), Posterior Tibial (L), Posterior Tibial (R) Skin: Warm, Dry, Intact. No: Rash, Ecchymosis Neurological: Cranial Nerves Intact, Normal Speech, Normal Tone. No: Focal Deficit Neuro Extensive - Mental Status: Alert, Oriented x3, Normal Mood/Affect, Normal Cognition, Memory Intact Psychiatric: Alert, Normal Affect, Normal Mood. No: Anxious, Depressed, Agitated, Suicidal Ideation - Patient Data Result Diagrams: 10/09/20 10:00 10/09/20 10:00 Problem List Initiated/Reviewed/Updated: Yes Orders Last 24hrs: Active Orders 24 hr Category Date Time Status Patient Status [ADT] Routine ADT 10/09/20 09:44 Active Communication Order [RC] ROUTINE Care 10/09/20 09:47 Active Communication Order [RC] ROUTINE Care 10/09/20 09:48 Active Height and Weight [RC] DAILY Care 10/09/20 09:43 Active Intake and Output Strict [RC] ASDIRECTED Care 10/09/20 09:47 Active Up ad Veronica [RC] ASDIRECTED Care 10/09/20 09:43 Active VTE/DVT Education [RC] PER UNIT ROUTINE Care 10/09/20 09:44 Active Vital Signs [RC] Q4H Care 10/09/20 09:44 Active Consult to Production Lead [CONS] Routine Cons 10/09/20 09:43 Active Regular Diet [DIET] Diet 10/09/20 Lunch Active CBC WITH AUTO DIFF [HEME] Routine Lab 10/09/20 10:00 Received COMPREHENSIVE METABOLIC PN,CMP [CHEM] Routine Lab 10/09/20 10:00 Received MAGNESIUM [CHEM] Routine Lab 10/09/20 10:00 Received PHOSPHORUS [CHEM] Routine Lab 10/09/20 10:00 Received UA W/MICROSCOPIC [URIN] Routine Lab 10/09/20 09:43 Ordered Docusate Sodium [Colace] Med 10/09/20 09:43 Active 100 mg PO BID PRN Ondansetron [Zofran ODT] Med 10/09/20 09:43 Active 8 mg PO Q6H PRN Promethazine [Phenergan] Med 10/09/20 09:43 Active 50 mg PO Q6H PRN Resuscitation Status Routine Resus Stat 10/09/20 09:43 Ordered Medication Orders Docusate Sodium (Docusate Sodium 100 Mg Cap) 100 mg PO BID PRN PRN Reason: Constipation Ondansetron HCl (Ondansetron 4 Mg Tab.Dis) 8 mg PO Q6H PRN PRN Reason: nausea, able to take PO Promethazine HCl (Promethazine 25 Mg Tab) 50 mg PO Q6H PRN PRN Reason: nausea, able to take PO Assessment/Plan Comment:: Patient will be admitted for observation to strictly monitor intake and output. It is not clear at this time the accuracy of the patient's history as physiologically it does not appear she has lost a significant amount of weight, vitals are stable, and laboratory evaluations have been within normal, which does not corroborate her history. Suspect there may be some underlying psychia tric contribution or disorder manifesting as her presenting symptom. Factitious disorder is a possibility at this point. Will continue to monitor. <Radha Donato - Last Filed: 10/09/20 13:16> H&P History of Present Illness - General Admit Problem/Dx: Admission Diagnosis/Problem Admission Diagnosis/Problem Vomiting Generalized Pain Score (Numeric/FACES): 7 Exam - Vital Signs Vital Signs: Last Vital Signs Temp 36.4 C 10/09/20 12:30 Pulse 73 10/09/20 12:30 Resp 16 10/09/20 12:30 BP 98/63 10/09/20 12:30 Pulse Ox 99 10/09/20 12:30 - Patient Data Lab Results Last 24 hrs: Laboratory Results - last 24 hr 10/09/20 10/09/20 10/09/20 Range/Units 10:00 10:00 10:37 WBC 4.8 L (5.0-10.0) 10^3/uL RBC 5.18 (4.2-5.4) 10^6/uL Hgb 14.4 (12.0-16.0) g/dL Hct 43.8 (37.0-47.0) % MCV 84.6 D (80-100) fL MCH 27.8 (27.0-34.0) pg MCHC 32.9 L (33.0-35.0) g/dL Plt Count 301 D (150-450) 10^3/uL Neut % (Auto) 66.9 (42.2-75.2) % Lymph % (Auto) 24.3 (20.5-50.1) % [place] % (Auto) 8.2 H (2-8) % Eos % (Auto) 0.4 L (1.0-3.0) % Baso % (Auto) 0.2 (0.0-1.0) % Sodium 142 (136-145) mmol/L Potassium 3.8 (3.5-5.1) mmol/L Chloride 104 (98-107) mmol/L Carbon Dioxide 27 (21-32) mmol/L Anion Gap 14.8 H (7-13) mEq/L BUN 13 (7-18) mg/dL Creatinine 1.00 (0.55-1.02) mg/dL Est Cr Clr Drug Dosing 80.75 mL/min Estimated GFR (MDRD) > 60 BUN/Creatinine Ratio 13.0 (No establ ref range) Glucose 90 (74-99) mg/dL Calcium 8.7 (8.5-10.1) mg/dL Phosphorus 3.8 (2.6-4.7) mg/dL Magnesium 2.0 (1.8-2.4) mg/dL Total Bilirubin 0.3 (0.2-1.0) mg/dL AST 15 (15-37) U/L ALT 31 (14-59) U/L Alkaline Phosphatase 104 (46-116) U/L Total Protein 7.9 (6.4-8.2) g/dL Albumin 3.6 (3.4-5.0) g/dL Globulin 4.3 Albumin/Globulin Ratio 0.8 Urine Color Yellow (YELLOW) Urine Appearance Cloudy (CLEAR) Urine pH 6.5 (5.0-9.0) Ur Specific [place] 1.025 (1.005-1.030) Urine Protein Negative (NEGATIVE) Urine Glucose (UA) Negative (NEGATIVE) Urine Ketones Negative (NEGATIVE) Urine Occult Blood Negative (NEGATIVE) Urine Nitrite Negative (NEGATIVE) Urine Bilirubin Negative (NEGATIVE) Urine Urobilinogen 0.2 (0.2-1.0) mg/dL Ur Leukocyte Esterase Small H (NEGATIVE) Urine RBC 5-10 H /HPF Urine WBC 5-10 H (0-5/HPF) /HPF Ur Epithelial Cells Moderate H (NOT SEEN) /HPF Amorphous Sediment Many H (NOT SEEN) /HPF Urine Bacteria Few (0-FEW/HPF) /HPF Urine Mucus Few H (NOT SEEN) /LPF SARS-CoV-2 RNA (AYANNA) (NEGATIVE) 10/09/20 Range/Units 10:50 WBC (5.0-10.0) 10^3/uL RBC (4.2-5.4) 10^6/uL Hgb (12.0-16.0) g/dL Hct (37.0-47.0) % MCV (80-100) fL MCH (27.0-34.0) pg MCHC (33.0-35.0) g/dL Plt Count (150-450) 10^3/uL Neut % (Auto) (42.2-75.2) % Lymph % (Auto) (20.5-50.1) % [place] % (Auto) (2-8) % Eos % (Auto) (1.0-3.0) % Baso % (Auto) (0.0-1.0) % Sodium (136-145) mmol/L Potassium (3.5-5.1) mmol/L Chloride (98-107) mmol/L Carbon Dioxide (21-32) mmol/L Anion Gap (7-13) mEq/L BUN (7-18) mg/dL Creatinine (0.55-1.02) mg/dL Est Cr Clr Drug Dosing mL/min Estimated GFR (MDRD) BUN/Creatinine Ratio (No establ ref range) Glucose (74-99) mg/dL Calcium (8.5-10.1) mg/dL Phosphorus (2.6-4.7) mg/dL Magnesium (1.8-2.4) mg/dL Total Bilirubin (0.2-1.0) mg/dL AST (15-37) U/L ALT (14-59) U/L Alkaline Phosphatase (46-116) U/L Total Protein (6.4-8.2) g/dL Albumin (3.4-5.0) g/dL Globulin Albumin/Globulin Ratio Urine Color (YELLOW) Urine Appearance (CLEAR) Urine pH (5.0-9.0) Ur Specific [place] (1.005-1.030) Urine Protein (NEGATIVE) Urine Glucose (UA) (NEGATIVE) Urine Ketones (NEGATIVE) Urine Occult Blood (NEGATIVE) Urine Nitrite (NEGATIVE) Urine Bilirubin (NEGATIVE) Urine Urobilinogen (0.2-1.0) mg/dL Ur Leukocyte Esterase (NEGATIVE) Urine RBC /HPF Urine WBC (0-5/HPF) /HPF Ur Epithelial Cells (NOT SEEN) /HPF Amorphous Sediment (NOT SEEN) /HPF Urine Bacteria (0-FEW/HPF) /HPF Urine Mucus (NOT SEEN) /LPF SARS-CoV-2 RNA (AYANNA) Negative (NEGATIVE) Result Diagrams: 10/09/20 10:00 10/09/20 10:00 Orders Last 24hrs: Active Orders 24 hr Category Date Time Status Patient Status [ADT] Routine ADT 10/09/20 09:44 Active Communication Order [RC] 08,20 Care 10/09/20 09:47 Active Communication Order [RC] ROUTINE Care 10/09/20 09:48 Active Height and Weight [RC] 06 Care 10/09/20 09:43 Active Intake and Output Strict [RC] 06,14,22 Care 10/09/20 09:47 Active Up ad Veronica [RC] ASDIRECTED Care 10/09/20 09:43 Active VTE/DVT Education [RC] PER UNIT ROUTINE Care 10/09/20 09:44 Active Vital Signs [RC] 00,04,08,12,16,20 Care 10/09/20 09:44 Active Consult to Production Lead [CONS] Routine Cons 10/09/20 09:43 Active Regular Diet [DIET] Diet 10/09/20 Lunch Active Docusate Sodium [Colace] Med 10/09/20 09:43 Active 100 mg PO BID PRN Ondansetron [Zofran ODT] Med 10/09/20 09:43 Active 8 mg PO Q6H PRN Promethazine [Phenergan] Med 10/09/20 09:43 Active 50 mg PO Q6H PRN Resuscitation Status Routine Resus Stat 10/09/20 09:43 Ordered Medication Orders Docusate Sodium (Docusate Sodium 100 Mg Cap) 100 mg PO BID PRN PRN Reason: Constipation Ondansetron HCl (Ondansetron 4 Mg Tab.Dis) 8 mg PO Q6H PRN PRN Reason: nausea, able to take PO Last Admin: 10/09/20 12:28 Dose: 8 mg Documented by: HARMEET Promethazine HCl (Promethazine 25 Mg Tab) 50 mg PO Q6H PRN PRN Reason: nausea, able to take PO Assessment/Plan Comment:: Patient was personally seen and examined with the medical student. I reviewed the noted scribed on my behalf and necessary changes have been made to reflect my opinion on the history, exam, assessment, and plan. Radha Donato MD
[2020-10-09 10:32] LABS: ANION GAP 14.8 mEq/L (7-13); CHLORIDE,CL 104 mmol/L (98-107); SODIUM,NA 142 mmol/L (136-145)
[2020-10-09] MEDS: Ondansetron 4 MG Tab.DIS PO PRN ×2 (12:28→18:42)
[2020-10-09] MEDS ORDERED: Dicyclomine 10 MG Cap PO PRN (20:59)
[2020-10-09] MEDS ORDERED: hydrOXYzine HCl 25 MG Tab PO PRN (21:00)
[2020-10-10] MEDS: Ondansetron 4 MG Tab.DIS PO PRN (09:17)
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
[2020-10-10 13:32] VITALS: BP 115/56; PULSE 63
== END 2020-10-10 16:45 | disposition home or self-care (01) ==
LOC: DL.ED 08:35 → UNDOADMOB 09:00 → INTOOBSV 09:00 → DL.MS 09:00
PROVIDERS: ADMIT Internal Medicine; ATTEND Family Medicine
DX: R11.2 Nausea with vomiting, unspecified (principal); F68.10 Factitious disorder imposed on self, unspecified; J45.909 Unspecified asthma, uncomplicated; E66.9 Obesity, unspecified; Z68.41 Body mass index [BMI] 40.0-44.9, adult; Z20.822 Contact with and (suspected) exposure to COVID-19; Z88.1 Allergy status to other antibiotic agents; Z88.8 Allergy status to other drugs, medicaments and biological substances; Z79.899 Other long term (current) drug therapy; Z87.39 Personal history of other diseases of the musculoskeletal system and connective tissue; Z91.5 Personal history of self-harm; Z86.59 Personal history of other mental and behavioral disorders; Z98.890 Other specified postprocedural states
CPT/HCPCS: 36415; 80053; 81001; 83735; 84100; 85025; 87635; A9270; G0378; U0002

== ENCOUNTER 2021-04-14 13:20 | Inpatient (IN) | payer BC, MEDICAID ==
[2021-04-14] MEDS ORDERED: Activated Charcoal/Water Susp 50 GM/240 ML Tube PO ONE (13:34)
[2021-04-14] MEDS ORDERED: Sodium Chloride 0.9% 1,000 ML IV ONE (13:34)
[2021-04-14] MEDS ORDERED: WATER IV ONE ×12 (13:49→17:15)
[2021-04-14] MEDS ORDERED: ACETYLCYSTEINE IV ONE ×12 (13:49→17:15)
[2021-04-14] MEDS ORDERED: DEXTROSE 5% IV ONE ×12 (13:49→17:15)
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
[2021-04-14 14:34] LABS: AMPHETAMINES,URINE NEGATIVE (NEGATIVE); BARBITURATES,URINE NEGATIVE (NEGATIVE); BENZODIAZEPINE,URINE NEGATIVE (NEGATIVE); MDMA (ECSTASY), URINE NEGATIVE (NEGATIVE); METHADONE,URINE NEGATIVE (NEGATIVE); METHAMPHETAMINES,URINE NEGATIVE (NEGATIVE); OPIATES,URINE NEGATIVE (NEGATIVE); OXYCODONE,URINE NEGATIVE (NEGATIVE); PHENCYCLIDINE,URINE NEGATIVE (NEGATIVE); TCA,URINE NEGATIVE (NEGATIVE)
[2021-04-14 14:42] LABS: PTT,PARTIAL THROMBOPLSTIN TIME 28.1 SEC (22.0-34.0)
[2021-04-14 14:43] LABS: ANION GAP 17.8 mEq/L (7-13); CHLORIDE,CL 106 mmol/L (98-107); SODIUM,NA 141 mmol/L (136-145)
[2021-04-14 14:45] LABS: ACETAMINOPHEN 118 ug/mL (10-30 (Therapeutic))
[2021-04-14] MEDS: Sodium Chloride 0.9% 10 ML Syringe FLUSH PRN ×3 (15:08→17:46)
--- NOTE | 2021-04-14 17:40 | PCM.HP ---
H&P History of Present Illness - General Date of Service: 04/14/21 Admit Problem/Dx: Admission Diagnosis/Problem Admission Diagnosis/Problem Acetaminophen overdose Source of Information: Patient, Other (ER doctor and notes) - History of Present Illness Initial Comments - Free Text/Narative: Pt came to ER reporting taking about 20 tablets of Acetaminophen 500 mg at 1 PM. in ER she was treated with Charcot and started on the 1st dose of acetylcysteine. Pt states that she is no longer suicidal at present. She denies any complain. H/o depression with h/o acetaminophen overdose few months back Onset of Symptoms: Reports: Today Abdomen Pain Score (Numeric/FACES): 4 - Related Data Allergies/Adverse Reactions: Allergies Allergy/AdvReac Type Severity Reaction Status Date / Time amoxicillin Allergy Mild Rash Verified 04/14/21 16:12 gluten Allergy Mild stomach Verified 04/14/21 16:12 pain ibuprofen AdvReac vomiting, Verified 04/14/21 16:12 dizzy Home Medications: Home Meds Venlafaxine HCl [Venlafaxine ER] 150 mg PO DAILY 04/23/20 [History] norgestimate-ethinyl estradioL [Estarylla 0.25-0.035 mg Tablet] 1 tab PO DAILY 04/23/20 [History] Mometasone/Formoterol [Dulera 200-5 MCG] 2 puff IH BID 06/05/20 [History] Acetaminophen 500 mg PO Q6HR PRN 08/02/20 [History] Albuterol [Proventil Neb Soln] 2.5 mg INH Q4HR PRN 08/02/20 [History] Albuterol [Ventolin HFA] 2 puff INH Q6HR PRN 08/02/20 [History] Metoclopramide [Reglan] 10 mg PO Q8H 08/02/20 [History] Ondansetron [Ondansetron ODT] 4 mg PO Q6H PRN 08/02/20 [History] Topiramate [Topamax] 200 mg PO BEDTIME 08/02/20 [History] Lurasidone [Latuda] 60 mg PO WITHDINNER 10/09/20 [History] Pregabalin [Lyrica] 25 mg PO TID 10/09/20 [History] Promethazine [Phenergan] 25 mg PO Q6H PRN 10/09/20 [History] Venlafaxine HCl [Venlafaxine ER] 75 mg PO DAILY 10/09/20 [History] dilTIAZem HCL [Dilt-Xr] 180 mg PO BEDTIME 04/14/21 [History] Past Medical History - Past Health History Medical/Surgical History: Denies Medical/Surgical History HEENT History: Reports: None Cardiovascular History: Reports: Other (See Below) Other Cardiovascular History: POTS Respiratory History: Reports: Asthma Gastrointestinal History: Reports: Other (See Below) Other Gastrointestinal History: Gastroparesis - not diagnosed, 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 Chronic pain. Peroneal Tendinitis Neurological History: Reports: Migraines Psychiatric History: Reports: Anxiety, Bipolar, Depression, Panic Attack, PTSD, Suicide Attempt, Suicidal Ideation Endocrine/Metabolic History: Reports: Obesity/BMI 30+ Hematologic History: Reports: Anemia Immunologic History: Reports: None Oncologic (Cancer) History: Reports: None Dermatologic History: Reports: None - Infectious Disease History Infectious Disease History: Reports: None - Past Surgical History Head Surgeries/Procedures: Reports: None HEENT Surgical History: Reports: Adenoidectomy, Tonsillectomy Cardiovascular Surgical History: Reports: None Respiratory Surgical History: Reports: None GI Surgical History: Reports: Cholecystectomy, EGD Other GI Surgeries/Procedures: September 2019 Female Surgical History: Reports: None Endocrine Surgical History: Reports: None Neurological Surgical History: Reports: None Other Musculoskeletal Surgeries/Procedures:: Left foot surgery for perineal tendonitis Oncologic Surgical History: Reports: None - Past Imaging History Past Imaging History: Reports: CAT Scan, MRI, PFT, Ultrasound (Mesenteric- negative), Xray, Other (See Below) (Gastric emptying study- negative) Social & Family History - Family History Family Medical History: No Pertinent Family History HEENT: Reports: None Cardiac: Reports: CA : Reports: Other (See Below) Other Family History: bladderCa OBGYN: Reports: Other (See Below) Other OBGYN Family History: ovarian Ca Musculoskeletal: Reports: Arthritis, RA Neurological: Reports: Alzheimers Disease Psychiatric: Reports: Anxiety, Depression Endocrine/Metabolic: Reports: Diabetes, Type I Oncologic: Reports: Bladder, Ovarian - Tobacco Use Tobacco Use Status *Q: Never Tobacco User Second Hand Smoke Exposure: No - Caffeine Use Caffeine Use: Reports: Coffee, Energy Drinks Caffeine Use Comment: used to currently not since stomach problems began last year - Recreational Drug Use Recreational Drug Use: No - Living Situation & Occupation Living situation: Reports: with Family (Had to move back home because of stomach issues) 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 General: Denies: Fever, Chills Pulmonary: Denies: Shortness of Breath Cardiovascular: Denies: Chest Pain Gastrointestinal: Denies: Abdominal Pain, Nausea Musculoskeletal: Denies: Neck Pain Psychiatric: Reports: Depression, Suicidal Ideation (deneis at present). Denies: Confusion, Hallucinations, Hallucinations (Auditory) Neurological: Reports: No Symptoms, Confusion Hematologic/Lymphatic: Reports: No Symptoms Immunologic: Reports: No Symptoms Exam - Exam Exam: See Below - Vital Signs Vital Signs: Last Vital Signs Temp 97.6 F 04/14/21 15:57 Pulse 89 04/14/21 15:57 Resp 16 04/14/21 15:57 BP 136/77 04/14/21 15:57 Pulse Ox 99 04/14/21 15:57 Weight: 252 lb - Exam Quality Assessment: No: Supplemental Oxygen General: Alert, Oriented HEENT: Conjunctiva Clear, EOMI Neck: Supple Lungs: Clear to Auscultation Cardiovascular: Regular Rate, Regular Rhythm GI/Abdominal Exam: Soft, Non-Tender Back Exam: Full Range of Motion Extremities: Normal Inspection, Normal Range of Motion Skin: Warm, Dry Neurological: Cranial Nerves Intact Neuro Extensive - Mental Status: Alert, Oriented x3 Neuro Extensive - Motor, Sensory, Reflexes: CN II-XII Intact. No: Facial palsy (L), Facial Palsy (R), Motor/Sensory Deficits Psychiatric: Alert, Depressed. No: Agitated - Patient Data Lab Results Last 24 hrs: Laboratory Results - last 24 hr 04/14/21 04/14/21 04/14/21 Range/Units 13:48 13:48 13:48 WBC 9.0 (5.0-10.0) 10^3/uL RBC 4.88 (4.2-5.4) 10^6/uL Hgb 14.0 (12.0-16.0) g/dL Hct 41.7 (37.0-47.0) % MCV 85.5 (80-100) fL MCH 28.7 (27.0-34.0) pg MCHC 33.6 (33.0-35.0) g/dL Plt Count 343 (150-450) 10^3/uL Neut % (Auto) 62.2 (42.2-75.2) % Lymph % (Auto) 30.2 (20.5-50.1) % [place] % (Auto) 5.8 (2-8) % Eos % (Auto) 1.6 (1.0-3.0) % Baso % (Auto) 0.2 (0.0-1.0) % PT 10.2 (9.0-12.0) SEC INR 1.0 (0.9-1.2) APTT 28.1 (22.0-34.0) SEC Sodium 141 (136-145) mmol/L Potassium 3.8 (3.5-5.1) mmol/L Chloride 106 (98-107) mmol/L Carbon Dioxide 21 (21-32) mmol/L Anion Gap 17.8 H (7-13) mEq/L BUN 10 (7-18) mg/dL Creatinine 0.91 (0.55-1.02) mg/dL Est Cr Clr Drug Dosing 88.74 mL/min Estimated GFR (MDRD) > 60 BUN/Creatinine Ratio 11.0 (No establ ref range) Glucose 112 H (70-99) mg/dL POC Glucose (70-99) mg/dL Lactic Acid (0.4-2.0) mmol/L Calcium 8.7 (8.5-10.1) mg/dL Phosphorus 3.4 (2.6-4.7) mg/dL Magnesium 1.9 (1.8-2.4) mg/dL Total Bilirubin 0.3 (0.2-1.0) mg/dL AST 17 (15-37) U/L ALT 28 (14-59) U/L Alkaline Phosphatase 92 (46-116) U/L Creatine Kinase 95 (16-191) U/L Total Protein 8.3 H (6.4-8.2) g/dL Albumin 3.6 (3.4-5.0) g/dL Globulin 4.7 Albumin/Globulin Ratio 0.8 Amylase 75 (25-115) U/L Lipase 330 (73-393) U/L Urine Color (YELLOW) Urine Appearance (CLEAR) Urine pH (5.0-9.0) Ur Specific Taylor (1.005-1.030) Urine Protein (NEGATIVE) Urine Glucose (UA) (NEGATIVE) Urine Ketones (NEGATIVE) Urine Occult Blood (NEGATIVE) Urine Nitrite (NEGATIVE) Urine Bilirubin (NEGATIVE) Urine Urobilinogen (0.2-1.0) mg/dL Ur Leukocyte Esterase (NEGATIVE) Urine HCG, Qual Salicylates (2.8-20(Therapeutic)) mg/dL Urine Opiates Screen (NEGATIVE) Ur Oxycodone Screen (NEGATIVE) Urine Methadone Screen (NEGATIVE) Acetaminophen 118 H* (10-30 (Therapeutic)) ug/mL Ur Barbiturates Screen (NEGATIVE) U Tricyclic Antidepress (NEGATIVE) Ur Phencyclidine Scrn (NEGATIVE) Ur Amphetamine Screen (NEGATIVE) U Methamphetamines Scrn (NEGATIVE) Urine MDMA Screen (NEGATIVE) U Benzodiazepines Scrn (NEGATIVE) Urine Cocaine Screen (NEGATIVE) U Marijuana (THC) Screen (NEGATIVE) Ethyl Alcohol < 3 (0) mg/dL SARS-CoV-2 RNA (AYANNA) (NEGATIVE) 04/14/21 04/14/21 04/14/21 Range/Units 13:48 13:48 13:57 WBC (5.0-10.0) 10^3/uL RBC (4.2-5.4) 10^6/uL Hgb (12.0-16.0) g/dL Hct (37.0-47.0) % MCV (80-100) fL MCH (27.0-34.0) pg MCHC (33.0-35.0) g/dL Plt Count (150-450) 10^3/uL Neut % (Auto) (42.2-75.2) % Lymph % (Auto) (20.5-50.1) % [place] % (Auto) (2-8) % Eos % (Auto) (1.0-3.0) % Baso % (Auto) (0.0-1.0) % PT (9.0-12.0) SEC INR (0.9-1.2) APTT (22.0-34.0) SEC Sodium (136-145) mmol/L Potassium (3.5-5.1) mmol/L Chloride (98-107) mmol/L Carbon Dioxide (21-32) mmol/L Anion Gap (7-13) mEq/L BUN (7-18) mg/dL Creatinine (0.55-1.02) mg/dL Est Cr Clr Drug Dosing mL/min Estimated GFR (MDRD) BUN/Creatinine Ratio (No establ ref range) Glucose (70-99) mg/dL POC Glucose 107 H (70-99) mg/dL Lactic Acid 1.0 (0.4-2.0) mmol/L Calcium (8.5-10.1) mg/dL Phosphorus (2.6-4.7) mg/dL Magnesium (1.8-2.4) mg/dL Total Bilirubin (0.2-1.0) mg/dL AST (15-37) U/L ALT (14-59) U/L Alkaline Phosphatase (46-116) U/L Creatine Kinase (16-191) U/L Total Protein (6.4-8.2) g/dL Albumin (3.4-5.0) g/dL Globulin Albumin/Globulin Ratio Amylase (25-115) U/L Lipase (73-393) U/L Urine Color (YELLOW) Urine Appearance (CLEAR) Urine pH (5.0-9.0) Ur Specific Taylor (1.005-1.030) Urine Protein (NEGATIVE) Urine Glucose (UA) (NEGATIVE) Urine Ketones (NEGATIVE) Urine Occult Blood (NEGATIVE) Urine Nitrite (NEGATIVE) Urine Bilirubin (NEGATIVE) Urine Urobilinogen (0.2-1.0) mg/dL Ur Leukocyte Esterase (NEGATIVE) Urine HCG, Qual Salicylates < 2.8 L (2.8-20(Therapeutic)) mg/dL Urine Opiates Screen (NEGATIVE) Ur Oxycodone Screen (NEGATIVE) Urine Methadone Screen (NEGATIVE) Acetaminophen (10-30 (Therapeutic)) ug/mL Ur Barbiturates Screen (NEGATIVE) U Tricyclic Antidepress (NEGATIVE) Ur Phencyclidine Scrn (NEGATIVE) Ur Amphetamine Screen (NEGATIVE) U Methamphetamines Scrn (NEGATIVE) Urine MDMA Screen (NEGATIVE) U Benzodiazepines Scrn (NEGATIVE) Urine Cocaine Screen (NEGATIVE) U Marijuana (THC) Screen (NEGATIVE) Ethyl Alcohol (0) mg/dL SARS-CoV-2 RNA (AYANNA) (NEGATIVE) 04/14/21 04/14/21 04/14/21 Range/Units 14:24 14:24 14:24 WBC (5.0-10.0) 10^3/uL RBC (4.2-5.4) 10^6/uL Hgb (12.0-16.0) g/dL Hct (37.0-47.0) % MCV (80-100) fL MCH (27.0-34.0) pg MCHC (33.0-35.0) g/dL Plt Count (150-450) 10^3/uL Neut % (Auto) (42.2-75.2) % Lymph % (Auto) (20.5-50.1) % [place] % (Auto) (2-8) % Eos % (Auto) (1.0-3.0) % Baso % (Auto) (0.0-1.0) % PT (9.0-12.0) SEC INR (0.9-1.2) APTT (22.0-34.0) SEC Sodium (136-145) mmol/L Potassium (3.5-5.1) mmol/L Chloride (98-107) mmol/L Carbon Dioxide (21-32) mmol/L Anion Gap (7-13) mEq/L BUN (7-18) mg/dL Creatinine (0.55-1.02) mg/dL Est Cr Clr Drug Dosing mL/min Estimated GFR (MDRD) BUN/Creatinine Ratio (No establ ref range) Glucose (70-99) mg/dL POC Glucose (70-99) mg/dL Lactic Acid (0.4-2.0) mmol/L Calcium (8.5-10.1) mg/dL Phosphorus (2.6-4.7) mg/dL Magnesium (1.8-2.4) mg/dL Total Bilirubin (0.2-1.0) mg/dL AST (15-37) U/L ALT (14-59) U/L Alkaline Phosphatase (46-116) U/L Creatine Kinase (16-191) U/L Total Protein (6.4-8.2) g/dL Albumin (3.4-5.0) g/dL Globulin Albumin/Globulin Ratio Amylase (25-115) U/L Lipase (73-393) U/L Urine Color Dark yellow (YELLOW) Urine Appearance Cloudy (CLEAR) Urine pH 7.0 (5.0-9.0) Ur Specific Taylor 1.025 (1.005-1.030) Urine Protein Negative (NEGATIVE) Urine Glucose (UA) Negative (NEGATIVE) Urine Ketones Negative (NEGATIVE) Urine Occult Blood Negative (NEGATIVE) Urine Nitrite Negative (NEGATIVE) Urine Bilirubin Negative (NEGATIVE) Urine Urobilinogen 0.2 (0.2-1.0) mg/dL Ur Leukocyte Esterase Negative (NEGATIVE) Urine HCG, Qual Negative Salicylates (2.8-20(Therapeutic)) mg/dL Urine Opiates Screen Negative (NEGATIVE) Ur Oxycodone Screen Negative (NEGATIVE) Urine Methadone Screen Negative (NEGATIVE) Acetaminophen (10-30 (Therapeutic)) ug/mL Ur Barbiturates Screen Negative (NEGATIVE) U Tricyclic Antidepress Negative (NEGATIVE) Ur Phencyclidine Scrn Negative (NEGATIVE) Ur Amphetamine Screen Negative (NEGATIVE) U Methamphetamines Scrn Negative (NEGATIVE) Urine MDMA Screen Negative (NEGATIVE) U Benzodiazepines Scrn Negative (NEGATIVE) Urine Cocaine Screen Negative (NEGATIVE) U Marijuana (THC) Screen Negative (NEGATIVE) Ethyl Alcohol (0) mg/dL SARS-CoV-2 RNA (AYANNA) (NEGATIVE) 04/14/21 Range/Units 16:20 WBC (5.0-10.0) 10^3/uL RBC (4.2-5.4) 10^6/uL Hgb (12.0-16.0) g/dL Hct (37.0-47.0) % MCV (80-100) fL MCH (27.0-34.0) pg MCHC (33.0-35.0) g/dL Plt Count (150-450) 10^3/uL Neut % (Auto) (42.2-75.2) % Lymph % (Auto) (20.5-50.1) % [place] % (Auto) (2-8) % Eos % (Auto) (1.0-3.0) % Baso % (Auto) (0.0-1.0) % PT (9.0-12.0) SEC INR (0.9-1.2) APTT (22.0-34.0) SEC Sodium (136-145) mmol/L Potassium (3.5-5.1) mmol/L Chloride (98-107) mmol/L Carbon Dioxide (21-32) mmol/L Anion Gap (7-13) mEq/L BUN (7-18) mg/dL Creatinine (0.55-1.02) mg/dL Est Cr Clr Drug Dosing mL/min Estimated GFR (MDRD) BUN/Creatinine Ratio (No establ ref range) Glucose (70-99) mg/dL POC Glucose (70-99) mg/dL Lactic Acid (0.4-2.0) mmol/L Calcium (8.5-10.1) mg/dL Phosphorus (2.6-4.7) mg/dL Magnesium (1.8-2.4) mg/dL Total Bilirubin (0.2-1.0) mg/dL AST (15-37) U/L ALT (14-59) U/L Alkaline Phosphatase (46-116) U/L Creatine Kinase (16-191) U/L Total Protein (6.4-8.2) g/dL Albumin (3.4-5.0) g/dL Globulin Albumin/Globulin Ratio Amylase (25-115) U/L Lipase (73-393) U/L Urine Color (YELLOW) Urine Appearance (CLEAR) Urine pH (5.0-9.0) Ur Specific Taylor (1.005-1.030) Urine Protein (NEGATIVE) Urine Glucose (UA) (NEGATIVE) Urine Ketones (NEGATIVE) Urine Occult Blood (NEGATIVE) Urine Nitrite (NEGATIVE) Urine Bilirubin (NEGATIVE) Urine Urobilinogen (0.2-1.0) mg/dL Ur Leukocyte Esterase (NEGATIVE) Urine HCG, Qual Salicylates (2.8-20(Therapeutic)) mg/dL Urine Opiates Screen (NEGATIVE) Ur Oxycodone Screen (NEGATIVE) Urine Methadone Screen (NEGATIVE) Acetaminophen (10-30 (Therapeutic)) ug/mL Ur Barbiturates Screen (NEGATIVE) U Tricyclic Antidepress (NEGATIVE) Ur Phencyclidine Scrn (NEGATIVE) Ur Amphetamine Screen (NEGATIVE) U Methamphetamines Scrn (NEGATIVE) Urine MDMA Screen (NEGATIVE) U Benzodiazepines Scrn (NEGATIVE) Urine Cocaine Screen (NEGATIVE) U Marijuana (THC) Screen (NEGATIVE) Ethyl Alcohol (0) mg/dL SARS-CoV-2 RNA (AYANNA) Negative (NEGATIVE) Result Diagrams: 04/14/21 13:48 04/14/21 13:48 Problem List Initiated/Reviewed/Updated: Yes Orders Last 24hrs: Active Orders 24 hr Category Date Time Status Admission Diagnosis [ADT] Urgent ADT 04/14/21 15:38 Ordered Admission Status [Patient Status] [ADT] Routine ADT 04/14/21 15:38 Active Cardiac Monitoring [RC] . DIRECTED Care 04/14/21 15:38 Active Oxygen Therapy [RC] PRN Care 04/14/21 16:38 Active Suicide Precautions [RC] .Per Facility Policy Care 04/14/21 13:33 Active Telemetry Monitoring [Cardiac Monitoring] [RC] . Care 04/14/21 17:26 Ordered DIRECTED VTE/DVT Education [RC] PER UNIT ROUTINE Care 04/14/21 16:38 Active Vital Signs [RC] Q2H Care 04/14/21 16:38 Active Regular Diet [DIET] Diet 04/14/21 Dinner Active ACETAMINOPHEN [CHEM] Routine Lab 04/14/21 17:00 Ordered ACETAMINOPHEN [CHEM] Stat Lab 04/14/21 21:00 Ordered ACETAMINOPHEN [CHEM] Stat Lab 04/14/21 23:00 Ordered ACETAMINOPHEN [CHEM] Stat Lab 04/15/21 01:00 Ordered ACETAMINOPHEN [CHEM] Stat Lab 04/15/21 03:00 Ordered ACETAMINOPHEN [CHEM] Stat Lab 04/15/21 05:00 Ordered ACETAMINOPHEN [REF] Stat Lab 04/14/21 19:00 Ordered CMP [COMPREHENSIVE METABOLIC PN,CMP] [CHEM] Routine Lab 04/14/21 19:00 Ordered CMP [COMPREHENSIVE METABOLIC PN,CMP] [CHEM] Routine Lab 04/14/21 23:00 Ordered CMP [COMPREHENSIVE METABOLIC PN,CMP] [CHEM] Routine Lab 04/15/21 03:00 Ordered CMP [COMPREHENSIVE METABOLIC PN,CMP] [CHEM] Routine Lab 04/15/21 05:00 Ordered COMPREHENSIVE METABOLIC PN,CMP [CHEM] Routine Lab 04/14/21 21:00 Ordered COMPREHENSIVE METABOLIC PN,CMP [CHEM] Routine Lab 04/15/21 01:00 Ordered COMPREHENSIVE METABOLIC PN,CMP [CHEM] Timed Lab 04/14/21 17:00 Ordered INR,PT,PROTHROMBIN TIME [COAG] Timed Lab 04/14/21 17:18 Ordered INR,PT,PROTHROMBIN TIME [COAG] Timed Lab 04/14/21 17:20 Ordered INR,PT,PROTHROMBIN TIME [COAG] Timed Lab 04/14/21 23:00 Ordered INR,PT,PROTHROMBIN TIME [COAG] Timed Lab 04/15/21 01:00 Ordered INR,PT,PROTHROMBIN TIME [COAG] Timed Lab 04/15/21 03:00 Ordered Acetylcysteine [Acetadote 20%] 10,000 mg Med 04/14/21 21:15 Active Dextrose 5% in Water 1,000 ml IV ONETIME Acetylcysteine [Acetadote 20%] 6,000 mg Med 04/14/21 17:15 Active Dextrose 5% in Water 500 ml IV ONETIME Ondansetron [Zofran] Med 04/14/21 16:38 Active 4 mg IVPUSH Q6H PRN Sodium Chloride 0.9% [Saline Flush] Med 04/14/21 13:31 Active 10 ml FLUSH ASDIRECTED PRN Sodium Chloride 0.9% [Saline Flush] Med 04/14/21 13:33 Active 10 ml FLUSH ASDIRECTED PRN diphenhydrAMINE [Benadryl] Med 04/14/21 17:30 Ordered 25 mg IVPUSH Q4H PRN methylPREDNISolone Sod Succ [Solu-MEDROL] Med 04/14/21 17:45 Ordered 125 mg IVPUSH Q6H Peripheral IV Insertion Adult [OM.PC] Stat Oth 04/14/21 13:31 Ordered Peripheral IV Insertion Adult [OM.PC] Stat Oth 04/14/21 13:33 Ordered Resuscitation Status Routine Resus Stat 04/14/21 16:38 Ordered Medication Orders Diphenhydramine HCl (Diphenhydramine 50 Mg/Ml Sdv) 25 mg IVPUSH Q4H PRN PRN Reason: Itching Acetylcysteine 6,000 mg/ (Dextrose/Water) 530 mls @ 132.5 mls/hr IV ONETIME ONE; Protocol Stop: 04/14/21 21:14 Acetylcysteine 10,000 mg/ (Dextrose/Water) 1,050 mls @ 65.625 mls/hr IV ONETIME ONE; Protocol Stop: 04/15/21 13:14 Methylprednisolone Sodium Succinate (Methylprednisolone Sodium Succinate 125 Mg/2 Ml Sdv) 125 mg IVPUSH Q6H PAPA Ondansetron HCl (Ondansetron 4 Mg/2 Ml Sdv) 4 mg IVPUSH Q6H PRN PRN Reason: Nausea/Vomiting Sodium Chloride (Sodium Chloride 0.9% 10 Ml Syringe) 10 ml FLUSH ASDIRECTED PRN PRN Reason: Keep Vein Open Last Admin: 04/14/21 15:08 Dose: 10 ml Documented by: ANDERSON Sodium Chloride (Sodium Chloride 0.9% 10 Ml Syringe) 10 ml FLUSH ASDIRECTED PRN PRN Reason: Keep Vein Open Last Admin: 04/14/21 15:08 Dose: 10 ml Documented by: ANDERSON Assessment/Plan Comment:: Acetaminophen overdose, suicidal attempt, depression pt has already received Charcoal in ER. Acetylcysteine was initiated in ER. For 2ed dose and possibly 3ed dose. Pharmacy to dose repeat Acetaminophen, LFT, INR per protocol No available bed in the state at present Suicidal precaution Mental health consult DVT prophy; low risk Total time spent 90 min including consultation with ER and pharmacy
[2021-04-14] MEDS: diphenhydrAMINE 50 MG/ML SDV IVPUSH PRN ×2 (17:43→22:41)
[2021-04-14 17:47] LABS: ANION GAP 21.5 mEq/L (7-13); CHLORIDE,CL 107 mmol/L (98-107); SODIUM,NA 146 mmol/L (136-145)
[2021-04-14] MEDS: methylPREDNISolone Sodium Succinate 125 MG/2 ML SDV IVPUSH SCH ×2 (17:48→23:38)
[2021-04-14 19:30] LABS: ACETAMINOPHEN 17 ug/mL (10-30 (Therapeutic)); ANION GAP 19.2 mEq/L (7-13); CHLORIDE,CL 107 mmol/L (98-107); SODIUM,NA 143 mmol/L (136-145)
[2021-04-14] MEDS ORDERED: Acetylcysteine 20% 200 MG/ML 30 ML Nebulizer Soln SDV ONE (20:46)
[2021-04-14] MEDS ORDERED: Acetylcysteine 10,000 MG in Dextrose 5% in Water 1,000 ML IV ONE ×2 (21:15)
[2021-04-14 21:29] LABS: ACETAMINOPHEN 1 ug/mL (10-30 (Therapeutic)); ANION GAP 20.2 mEq/L (7-13); CHLORIDE,CL 107 mmol/L (98-107); SODIUM,NA 141 mmol/L (136-145)
[2021-04-14] MEDS: Ondansetron 4 MG/2 ML SDV IVPUSH PRN (22:48)
[2021-04-15] MEDS: diphenhydrAMINE 50 MG/ML SDV IVPUSH PRN ×2 (04:34→12:30)
[2021-04-15] MEDS: methylPREDNISolone Sodium Succinate 125 MG/2 ML SDV IVPUSH SCH ×2 (05:52→12:23)
[2021-04-15 06:26] LABS: ANION GAP 19.5 mEq/L (7-13); CHLORIDE,CL 108 mmol/L (98-107); SODIUM,NA 142 mmol/L (136-145)
[2021-04-15 06:30] LABS: ACETAMINOPHEN 0 ug/mL (10-30 (Therapeutic))
[2021-04-15 08:13] VITALS: PULSE 68
--- NOTE | 2021-04-15 11:17 | PCM.PN ---
- General Info Date of Service: 04/15/21 Functional Status: Reports: Pain Controlled, Tolerating Diet - Review of Systems General: Denies: Fever Pulmonary: Denies: Shortness of Breath Cardiovascular: Denies: Chest Pain Gastrointestinal: Denies: No Symptoms, Abdominal Pain, Nausea, Vomiting Skin: Reports: No Symptoms Neurological: Reports: No Symptoms Psychiatric: Reports: No Symptoms. Denies: Confusion, Agitation, Suicidal Ideation - Patient Data Vitals - Most Recent: Last Vital Signs Temp 98.4 F 04/15/21 08:00 Pulse 68 04/15/21 08:00 Resp 16 04/15/21 08:00 BP 127/50 L 04/15/21 08:00 Pulse Ox 97 04/15/21 08:00 Weight - Most Recent: 252 lb I&O - Last 24 Hours: Intake & Output 04/14/21 04/15/21 04/15/21 22:59 06:59 14:59 Intake Total 240 980 Balance 240 980 Lab Results Last 24 Hours: Laboratory Results - last 24 hr 04/14/21 04/14/21 04/14/21 Range/Units 13:48 13:48 13:48 WBC 9.0 (5.0-10.0) 10^3/uL RBC 4.88 (4.2-5.4) 10^6/uL Hgb 14.0 (12.0-16.0) g/dL Hct 41.7 (37.0-47.0) % MCV 85.5 (80-100) fL MCH 28.7 (27.0-34.0) pg MCHC 33.6 (33.0-35.0) g/dL Plt Count 343 (150-450) 10^3/uL Neut % (Auto) 62.2 (42.2-75.2) % Lymph % (Auto) 30.2 (20.5-50.1) % Stephens % (Auto) 5.8 (2-8) % Eos % (Auto) 1.6 (1.0-3.0) % Baso % (Auto) 0.2 (0.0-1.0) % PT 10.2 (9.0-12.0) SEC INR 1.0 (0.9-1.2) APTT 28.1 (22.0-34.0) SEC Sodium 141 (136-145) mmol/L Potassium 3.8 (3.5-5.1) mmol/L Chloride 106 (98-107) mmol/L Carbon Dioxide 21 (21-32) mmol/L Anion Gap 17.8 H (7-13) mEq/L BUN 10 (7-18) mg/dL Creatinine 0.91 (0.55-1.02) mg/dL Est Cr Clr Drug Dosing 88.74 mL/min Estimated GFR (MDRD) > 60 BUN/Creatinine Ratio 11.0 (No establ ref range) Glucose 112 H (70-99) mg/dL POC Glucose (70-99) mg/dL Lactic Acid (0.4-2.0) mmol/L Calcium 8.7 (8.5-10.1) mg/dL Phosphorus 3.4 (2.6-4.7) mg/dL Magnesium 1.9 (1.8-2.4) mg/dL Total Bilirubin 0.3 (0.2-1.0) mg/dL AST 17 (15-37) U/L ALT 28 (14-59) U/L Alkaline Phosphatase 92 (46-116) U/L Creatine Kinase 95 (16-191) U/L Total Protein 8.3 H (6.4-8.2) g/dL Albumin 3.6 (3.4-5.0) g/dL Globulin 4.7 Albumin/Globulin Ratio 0.8 Amylase 75 (25-115) U/L Lipase 330 (73-393) U/L Urine Color (YELLOW) Urine Appearance (CLEAR) Urine pH (5.0-9.0) Ur Specific [place] (1.005-1.030) Urine Protein (NEGATIVE) Urine Glucose (UA) (NEGATIVE) Urine Ketones (NEGATIVE) Urine Occult Blood (NEGATIVE) Urine Nitrite (NEGATIVE) Urine Bilirubin (NEGATIVE) Urine Urobilinogen (0.2-1.0) mg/dL Ur Leukocyte Esterase (NEGATIVE) Urine HCG, Qual Salicylates (2.8-20(Therapeutic)) mg/dL Urine Opiates Screen (NEGATIVE) Ur Oxycodone Screen (NEGATIVE) Urine Methadone Screen (NEGATIVE) Acetaminophen 118 H* (10-30 (Therapeutic)) ug/mL Ur Barbiturates Screen (NEGATIVE) U Tricyclic Antidepress (NEGATIVE) Ur Phencyclidine Scrn (NEGATIVE) Ur Amphetamine Screen (NEGATIVE) U Methamphetamines Scrn (NEGATIVE) Urine MDMA Screen (NEGATIVE) U Benzodiazepines Scrn (NEGATIVE) Urine Cocaine Screen (NEGATIVE) U Marijuana (THC) Screen (NEGATIVE) Ethyl Alcohol < 3 (0) mg/dL SARS-CoV-2 RNA (AYANNA) (NEGATIVE) 04/14/21 04/14/21 04/14/21 Range/Units 13:48 13:48 13:57 WBC (5.0-10.0) 10^3/uL RBC (4.2-5.4) 10^6/uL Hgb (12.0-16.0) g/dL Hct (37.0-47.0) % MCV (80-100) fL MCH (27.0-34.0) pg MCHC (33.0-35.0) g/dL Plt Count (150-450) 10^3/uL Neut % (Auto) (42.2-75.2) % Lymph % (Auto) (20.5-50.1) % Stephens % (Auto) (2-8) % Eos % (Auto) (1.0-3.0) % Baso % (Auto) (0.0-1.0) % PT (9.0-12.0) SEC INR (0.9-1.2) APTT (22.0-34.0) SEC Sodium (136-145) mmol/L Potassium (3.5-5.1) mmol/L Chloride (98-107) mmol/L Carbon Dioxide (21-32) mmol/L Anion Gap (7-13) mEq/L BUN (7-18) mg/dL Creatinine (0.55-1.02) mg/dL Est Cr Clr Drug Dosing mL/min Estimated GFR (MDRD) BUN/Creatinine Ratio (No establ ref range) Glucose (70-99) mg/dL POC Glucose 107 H (70-99) mg/dL Lactic Acid 1.0 (0.4-2.0) mmol/L Calcium (8.5-10.1) mg/dL Phosphorus (2.6-4.7) mg/dL Magnesium (1.8-2.4) mg/dL Total Bilirubin (0.2-1.0) mg/dL AST (15-37) U/L ALT (14-59) U/L Alkaline Phosphatase (46-116) U/L Creatine Kinase (16-191) U/L Total Protein (6.4-8.2) g/dL Albumin (3.4-5.0) g/dL Globulin Albumin/Globulin Ratio Amylase (25-115) U/L Lipase (73-393) U/L Urine Color (YELLOW) Urine Appearance (CLEAR) Urine pH (5.0-9.0) Ur Specific [place] (1.005-1.030) Urine Protein (NEGATIVE) Urine Glucose (UA) (NEGATIVE) Urine Ketones (NEGATIVE) Urine Occult Blood (NEGATIVE) Urine Nitrite (NEGATIVE) Urine Bilirubin (NEGATIVE) Urine Urobilinogen (0.2-1.0) mg/dL Ur Leukocyte Esterase (NEGATIVE) Urine HCG, Qual Salicylates < 2.8 L (2.8-20(Therapeutic)) mg/dL Urine Opiates Screen (NEGATIVE) Ur Oxycodone Screen (NEGATIVE) Urine Methadone Screen (NEGATIVE) Acetaminophen (10-30 (Therapeutic)) ug/mL Ur Barbiturates Screen (NEGATIVE) U Tricyclic Antidepress (NEGATIVE) Ur Phencyclidine Scrn (NEGATIVE) Ur Amphetamine Screen (NEGATIVE) U Methamphetamines Scrn (NEGATIVE) Urine MDMA Screen (NEGATIVE) U Benzodiazepines Scrn (NEGATIVE) Urine Cocaine Screen (NEGATIVE) U Marijuana (THC) Screen (NEGATIVE) Ethyl Alcohol (0) mg/dL SARS-CoV-2 RNA (AYANNA) (NEGATIVE) 04/14/21 04/14/21 04/14/21 Range/Units 14:24 14:24 14:24 WBC (5.0-10.0) 10^3/uL RBC (4.2-5.4) 10^6/uL Hgb (12.0-16.0) g/dL Hct (37.0-47.0) % MCV (80-100) fL MCH (27.0-34.0) pg MCHC (33.0-35.0) g/dL Plt Count (150-450) 10^3/uL Neut % (Auto) (42.2-75.2) % Lymph % (Auto) (20.5-50.1) % Stephens % (Auto) (2-8) % Eos % (Auto) (1.0-3.0) % Baso % (Auto) (0.0-1.0) % PT (9.0-12.0) SEC INR (0.9-1.2) APTT (22.0-34.0) SEC Sodium (136-145) mmol/L Potassium (3.5-5.1) mmol/L Chloride (98-107) mmol/L Carbon Dioxide (21-32) mmol/L Anion Gap (7-13) mEq/L BUN (7-18) mg/dL Creatinine (0.55-1.02) mg/dL Est Cr Clr Drug Dosing mL/min Estimated GFR (MDRD) BUN/Creatinine Ratio (No establ ref range) Glucose (70-99) mg/dL POC Glucose (70-99) mg/dL Lactic Acid (0.4-2.0) mmol/L Calcium (8.5-10.1) mg/dL Phosphorus (2.6-4.7) mg/dL Magnesium (1.8-2.4) mg/dL Total Bilirubin (0.2-1.0) mg/dL AST (15-37) U/L ALT (14-59) U/L Alkaline Phosphatase (46-116) U/L Creatine Kinase (16-191) U/L Total Protein (6.4-8.2) g/dL Albumin (3.4-5.0) g/dL Globulin Albumin/Globulin Ratio Amylase (25-115) U/L Lipase (73-393) U/L Urine Color Dark yellow (YELLOW) Urine Appearance Cloudy (CLEAR) Urine pH 7.0 (5.0-9.0) Ur Specific [place] 1.025 (1.005-1.030) Urine Protein Negative (NEGATIVE) Urine Glucose (UA) Negative (NEGATIVE) Urine Ketones Negative (NEGATIVE) Urine Occult Blood Negative (NEGATIVE) Urine Nitrite Negative (NEGATIVE) Urine Bilirubin Negative (NEGATIVE) Urine Urobilinogen 0.2 (0.2-1.0) mg/dL Ur Leukocyte Esterase Negative (NEGATIVE) Urine HCG, Qual Negative Salicylates (2.8-20(Therapeutic)) mg/dL Urine Opiates Screen Negative (NEGATIVE) Ur Oxycodone Screen Negative (NEGATIVE) Urine Methadone Screen Negative (NEGATIVE) Acetaminophen (10-30 (Therapeutic)) ug/mL Ur Barbiturates Screen Negative (NEGATIVE) U Tricyclic Antidepress Negative (NEGATIVE) Ur Phencyclidine Scrn Negative (NEGATIVE) Ur Amphetamine Screen Negative (NEGATIVE) U Methamphetamines Scrn Negative (NEGATIVE) Urine MDMA Screen Negative (NEGATIVE) U Benzodiazepines Scrn Negative (NEGATIVE) Urine Cocaine Screen Negative (NEGATIVE) U Marijuana (THC) Screen Negative (NEGATIVE) Ethyl Alcohol (0) mg/dL SARS-CoV-2 RNA (AYANNA) (NEGATIVE) 04/14/21 04/14/21 04/14/21 Range/Units 16:20 17:22 17:22 WBC (5.0-10.0) 10^3/uL RBC (4.2-5.4) 10^6/uL Hgb (12.0-16.0) g/dL Hct (37.0-47.0) % MCV (80-100) fL MCH (27.0-34.0) pg MCHC (33.0-35.0) g/dL Plt Count (150-450) 10^3/uL Neut % (Auto) (42.2-75.2) % Lymph % (Auto) (20.5-50.1) % Stephens % (Auto) (2-8) % Eos % (Auto) (1.0-3.0) % Baso % (Auto) (0.0-1.0) % PT (9.0-12.0) SEC INR (0.9-1.2) APTT (22.0-34.0) SEC Sodium 146 H (136-145) mmol/L Potassium 3.5 (3.5-5.1) mmol/L Chloride 107 (98-107) mmol/L Carbon Dioxide 21 (21-32) mmol/L Anion Gap 21.5 H (7-13) mEq/L BUN 9 (7-18) mg/dL Creatinine 0.84 (0.55-1.02) mg/dL Est Cr Clr Drug Dosing 96.13 mL/min Estimated GFR (MDRD) > 60 BUN/Creatinine Ratio 10.7 (No establ ref range) Glucose 116 H (70-99) mg/dL POC Glucose (70-99) mg/dL Lactic Acid (0.4-2.0) mmol/L Calcium 8.3 L (8.5-10.1) mg/dL Phosphorus (2.6-4.7) mg/dL Magnesium (1.8-2.4) mg/dL Total Bilirubin 0.2 (0.2-1.0) mg/dL AST 16 (15-37) U/L ALT 28 (14-59) U/L Alkaline Phosphatase 74 (46-116) U/L Creatine Kinase (16-191) U/L Total Protein 7.6 (6.4-8.2) g/dL Albumin 3.1 L (3.4-5.0) g/dL Globulin 4.5 Albumin/Globulin Ratio 0.69 Amylase (25-115) U/L Lipase (73-393) U/L Urine Color (YELLOW) Urine Appearance (CLEAR) Urine pH (5.0-9.0) Ur Specific [place] (1.005-1.030) Urine Protein (NEGATIVE) Urine Glucose (UA) (NEGATIVE) Urine Ketones (NEGATIVE) Urine Occult Blood (NEGATIVE) Urine Nitrite (NEGATIVE) Urine Bilirubin (NEGATIVE) Urine Urobilinogen (0.2-1.0) mg/dL Ur Leukocyte Esterase (NEGATIVE) Urine HCG, Qual Salicylates (2.8-20(Therapeutic)) mg/dL Urine Opiates Screen (NEGATIVE) Ur Oxycodone Screen (NEGATIVE) Urine Methadone Screen (NEGATIVE) Acetaminophen 31 H (10-30 (Therapeutic)) ug/mL Ur Barbiturates Screen (NEGATIVE) U Tricyclic Antidepress (NEGATIVE) Ur Phencyclidine Scrn (NEGATIVE) Ur Amphetamine Screen (NEGATIVE) U Methamphetamines Scrn (NEGATIVE) Urine MDMA Screen (NEGATIVE) U Benzodiazepines Scrn (NEGATIVE) Urine Cocaine Screen (NEGATIVE) U Marijuana (THC) Screen (NEGATIVE) Ethyl Alcohol (0) mg/dL SARS-CoV-2 RNA (AYANNA) Negative (NEGATIVE) 04/14/21 04/14/21 04/14/21 Range/Units 19:00 19:00 21:05 WBC (5.0-10.0) 10^3/uL RBC (4.2-5.4) 10^6/uL Hgb (12.0-16.0) g/dL Hct (37.0-47.0) % MCV (80-100) fL MCH (27.0-34.0) pg MCHC (33.0-35.0) g/dL Plt Count (150-450) 10^3/uL Neut % (Auto) (42.2-75.2) % Lymph % (Auto) (20.5-50.1) % Stephens % (Auto) (2-8) % Eos % (Auto) (1.0-3.0) % Baso % (Auto) (0.0-1.0) % PT 11.0 (9.0-12.0) SEC INR 1.1 (0.9-1.2) APTT (22.0-34.0) SEC Sodium 143 141 (136-145) mmol/L Potassium 3.2 L 3.2 L (3.5-5.1) mmol/L Chloride 107 107 (98-107) mmol/L Carbon Dioxide 20 L 17 L (21-32) mmol/L Anion Gap 19.2 H 20.2 H (7-13) mEq/L BUN 8 8 (7-18) mg/dL Creatinine 0.85 0.96 (0.55-1.02) mg/dL Est Cr Clr Drug Dosing 95.00 84.11 mL/min Estimated GFR (MDRD) > 60 > 60 BUN/Creatinine Ratio 9.4 8.3 (No establ ref range) Glucose 146 H 191 H (70-99) mg/dL POC Glucose (70-99) mg/dL Lactic Acid (0.4-2.0) mmol/L Calcium 8.0 L 8.4 L (8.5-10.1) mg/dL Phosphorus (2.6-4.7) mg/dL Magnesium (1.8-2.4) mg/dL Total Bilirubin 0.2 0.2 (0.2-1.0) mg/dL AST 20 18 (15-37) U/L ALT 27 28 (14-59) U/L Alkaline Phosphatase 71 74 (46-116) U/L Creatine Kinase (16-191) U/L Total Protein 7.1 7.6 (6.4-8.2) g/dL Albumin 2.9 L 3.1 L (3.4-5.0) g/dL Globulin 4.2 4.5 Albumin/Globulin Ratio 0.69 0.69 Amylase (25-115) U/L Lipase (73-393) U/L Urine Color (YELLOW) Urine Appearance (CLEAR) Urine pH (5.0-9.0) Ur Specific [place] (1.005-1.030) Urine Protein (NEGATIVE) Urine Glucose (UA) (NEGATIVE) Urine Ketones (NEGATIVE) Urine Occult Blood (NEGATIVE) Urine Nitrite (NEGATIVE) Urine Bilirubin (NEGATIVE) Urine Urobilinogen (0.2-1.0) mg/dL Ur Leukocyte Esterase (NEGATIVE) Urine HCG, Qual Salicylates (2.8-20(Therapeutic)) mg/dL Urine Opiates Screen (NEGATIVE) Ur Oxycodone Screen (NEGATIVE) Urine Methadone Screen (NEGATIVE) Acetaminophen 17 1 L (10-30 (Therapeutic)) ug/mL Ur Barbiturates Screen (NEGATIVE) U Tricyclic Antidepress (NEGATIVE) Ur Phencyclidine Scrn (NEGATIVE) Ur Amphetamine Screen (NEGATIVE) U Methamphetamines Scrn (NEGATIVE) Urine MDMA Screen (NEGATIVE) U Benzodiazepines Scrn (NEGATIVE) Urine Cocaine Screen (NEGATIVE) U Marijuana (THC) Screen (NEGATIVE) Ethyl Alcohol (0) mg/dL SARS-CoV-2 RNA (AYANNA) (NEGATIVE) 04/14/21 04/15/21 04/15/21 Range/Units 21:05 05:55 05:55 WBC (5.0-10.0) 10^3/uL RBC (4.2-5.4) 10^6/uL Hgb (12.0-16.0) g/dL Hct (37.0-47.0) % MCV (80-100) fL MCH (27.0-34.0) pg MCHC (33.0-35.0) g/dL Plt Count (150-450) 10^3/uL Neut % (Auto) (42.2-75.2) % Lymph % (Auto) (20.5-50.1) % Stephens % (Auto) (2-8) % Eos % (Auto) (1.0-3.0) % Baso % (Auto) (0.0-1.0) % PT 10.9 10.4 (9.0-12.0) SEC INR 1.1 1.0 (0.9-1.2) APTT (22.0-34.0) SEC Sodium 142 (136-145) mmol/L Potassium 3.5 (3.5-5.1) mmol/L Chloride 108 H (98-107) mmol/L Carbon Dioxide 18 L (21-32) mmol/L Anion Gap 19.5 H (7-13) mEq/L BUN 7 (7-18) mg/dL Creatinine 0.76 (0.55-1.02) mg/dL Est Cr Clr Drug Dosing 106.25 mL/min Estimated GFR (MDRD) > 60 BUN/Creatinine Ratio 9.2 (No establ ref range) Glucose 184 H (70-99) mg/dL POC Glucose (70-99) mg/dL Lactic Acid (0.4-2.0) mmol/L Calcium 8.8 (8.5-10.1) mg/dL Phosphorus (2.6-4.7) mg/dL Magnesium (1.8-2.4) mg/dL Total Bilirubin 0.2 (0.2-1.0) mg/dL AST 12 L (15-37) U/L ALT 27 (14-59) U/L Alkaline Phosphatase 77 (46-116) U/L Creatine Kinase (16-191) U/L Total Protein 7.9 (6.4-8.2) g/dL Albumin 3.2 L (3.4-5.0) g/dL Globulin 4.7 Albumin/Globulin Ratio 0.68 Amylase (25-115) U/L Lipase (73-393) U/L Urine Color (YELLOW) Urine Appearance (CLEAR) Urine pH (5.0-9.0) Ur Specific [place] (1.005-1.030) Urine Protein (NEGATIVE) Urine Glucose (UA) (NEGATIVE) Urine Ketones (NEGATIVE) Urine Occult Blood (NEGATIVE) Urine Nitrite (NEGATIVE) Urine Bilirubin (NEGATIVE) Urine Urobilinogen (0.2-1.0) mg/dL Ur Leukocyte Esterase (NEGATIVE) Urine HCG, Qual Salicylates (2.8-20(Therapeutic)) mg/dL Urine Opiates Screen (NEGATIVE) Ur Oxycodone Screen (NEGATIVE) Urine Methadone Screen (NEGATIVE) Acetaminophen 0 L (10-30 (Therapeutic)) ug/mL Ur Barbiturates Screen (NEGATIVE) U Tricyclic Antidepress (NEGATIVE) Ur Phencyclidine Scrn (NEGATIVE) Ur Amphetamine Screen (NEGATIVE) U Methamphetamines Scrn (NEGATIVE) Urine MDMA Screen (NEGATIVE) U Benzodiazepines Scrn (NEGATIVE) Urine Cocaine Screen (NEGATIVE) U Marijuana (THC) Screen (NEGATIVE) Ethyl Alcohol (0) mg/dL SARS-CoV-2 RNA (AYANNA) (NEGATIVE) Med Orders - Current: Current Medications Diphenhydramine HCl (Diphenhydramine 50 Mg/Ml Sdv) 25 mg IVPUSH Q4H PRN PRN Reason: Itching Last Admin: 04/15/21 04:34 Dose: 25 mg Documented by: Acetylcysteine 10,000 mg/ (Dextrose/Water) 1,050 mls @ 65.625 mls/hr IV ONETIME ONE; Protocol Stop: 04/15/21 13:14 Last Admin: 04/14/21 22:08 Dose: 65.625 mls/hr Documented by: Methylprednisolone Sodium Succinate (Methylprednisolone Sodium Succinate 125 Mg/2 Ml Sdv) 125 mg IVPUSH Q6H PAPA Last Admin: 04/15/21 05:52 Dose: 125 mg Documented by: Ondansetron HCl (Ondansetron 4 Mg/2 Ml Sdv) 4 mg IVPUSH Q6H PRN PRN Reason: Nausea/Vomiting Last Admin: 04/14/21 22:48 Dose: 4 mg Documented by: Sodium Chloride (Sodium Chloride 0.9% 10 Ml Syringe) 10 ml FLUSH ASDIRECTED PRN PRN Reason: Keep Vein Open Last Admin: 04/14/21 15:08 Dose: 10 ml Documented by: Discontinued Medications Acetylcysteine (Acetylcysteine 20% 200 Mg/Ml 30 Ml Nebulizer Soln Sdv) Confirm Administered Dose 12,000 mg .ROUTE .STK-MED ONE Stop: 04/14/21 20:47 Last Admin: 04/14/21 21:26 Dose: Not Given Documented by: Charcoal (Activated Charcoal/Water Susp 50 Gm/240 Ml Tube) 50 gm PO ONETIME ONE Stop: 04/14/21 13:35 Last Admin: 04/14/21 13:49 Dose: 50 gm Documented by: Sodium Chloride (Normal Saline) 1,000 mls @ 999 mls/hr IV .BOLUS ONE Stop: 04/14/21 14:34 Last Admin: 04/14/21 14:32 Dose: 999 mls/hr Documented by: Acetylcysteine 14,000 mg/ (Dextrose/Water) 270 mls @ 200 mls/hr IV ONETIME ONE; Protocol Stop: 04/14/21 14:48 Last Admin: 04/14/21 18:05 Dose: Not Given Documented by: Acetylcysteine 4,500 mg/ (Dextrose/Water) 222.5 mls @ 50 mls/hr IV ONETIME ONE; Protocol Stop: 04/14/21 18:18 Last Admin: 04/14/21 18:06 Dose: Not Given Documented by: Acetylcysteine 18,000 mg/ (Dextrose/Water) 290 mls @ 200 mls/hr IV ONETIME ONE; Protocol Stop: 04/14/21 14:56 Last Admin: 04/14/21 14:32 Dose: 200 mls/hr Documented by: Acetylcysteine 6,000 mg/ (Dextrose/Water) 230 mls @ 50 mls/hr IV ONETIME ONE; Protocol Stop: 04/14/21 18:33 Last Admin: 04/14/21 18:05 Dose: Not Given Documented by: Acetylcysteine 6,000 mg/ (Dextrose/Water) 230 mls @ 57.5 mls/hr IV ONETIME ONE; Protocol Stop: 04/14/21 21:14 Acetylcysteine 6,000 mg/ (Dextrose/Water) 530 mls @ 132.5 mls/hr IV ONETIME ONE; Protocol Stop: 04/14/21 21:14 Last Admin: 04/14/21 18:01 Dose: 132.5 mls/hr Documented by: Sodium Chloride (Sodium Chloride 0.9% 10 Ml Syringe) 10 ml FLUSH ASDIRECTED PRN PRN Reason: Keep Vein Open Last Admin: 04/14/21 17:46 Dose: 10 ml Documented by: - Exam Quality Assessment: No: Supplemental Oxygen General: Alert, Oriented, Cooperative HEENT: EOMI Lungs: Clear to Auscultation Cardiovascular: Regular Rate, Regular Rhythm GI/Abdominal Exam: Soft, Non-Tender Extremities: Normal Inspection Skin: Warm, Dry Neurological: No New Focal Deficit Psy/Mental Status: Alert, Normal Affect - Patient Data Lab Results Last 24 hrs: Laboratory Results - last 24 hr 04/14/21 04/14/21 04/14/21 Range/Units 13:48 13:48 13:48 WBC 9.0 (5.0-10.0) 10^3/uL RBC 4.88 (4.2-5.4) 10^6/uL Hgb 14.0 (12.0-16.0) g/dL Hct 41.7 (37.0-47.0) % MCV 85.5 (80-100) fL MCH 28.7 (27.0-34.0) pg MCHC 33.6 (33.0-35.0) g/dL Plt Count 343 (150-450) 10^3/uL Neut % (Auto) 62.2 (42.2-75.2) % Lymph % (Auto) 30.2 (20.5-50.1) % Stephens % (Auto) 5.8 (2-8) % Eos % (Auto) 1.6 (1.0-3.0) % Baso % (Auto) 0.2 (0.0-1.0) % PT 10.2 (9.0-12.0) SEC INR 1.0 (0.9-1.2) APTT 28.1 (22.0-34.0) SEC Sodium 141 (136-145) mmol/L Potassium 3.8 (3.5-5.1) mmol/L Chloride 106 (98-107) mmol/L Carbon Dioxide 21 (21-32) mmol/L Anion Gap 17.8 H (7-13) mEq/L BUN 10 (7-18) mg/dL Creatinine 0.91 (0.55-1.02) mg/dL Est Cr Clr Drug Dosing 88.74 mL/min Estimated GFR (MDRD) > 60 BUN/Creatinine Ratio 11.0 (No establ ref range) Glucose 112 H (70-99) mg/dL POC Glucose (70-99) mg/dL Lactic Acid (0.4-2.0) mmol/L Calcium 8.7 (8.5-10.1) mg/dL Phosphorus 3.4 (2.6-4.7) mg/dL Magnesium 1.9 (1.8-2.4) mg/dL Total Bilirubin 0.3 (0.2-1.0) mg/dL AST 17 (15-37) U/L ALT 28 (14-59) U/L Alkaline Phosphatase 92 (46-116) U/L Creatine Kinase 95 (16-191) U/L Total Protein 8.3 H (6.4-8.2) g/dL Albumin 3.6 (3.4-5.0) g/dL Globulin 4.7 Albumin/Globulin Ratio 0.8 Amylase 75 (25-115) U/L Lipase 330 (73-393) U/L Urine Color (YELLOW) Urine Appearance (CLEAR) Urine pH (5.0-9.0) Ur Specific [place] (1.005-1.030) Urine Protein (NEGATIVE) Urine Glucose (UA) (NEGATIVE) Urine Ketones (NEGATIVE) Urine Occult Blood (NEGATIVE) Urine Nitrite (NEGATIVE) Urine Bilirubin (NEGATIVE) Urine Urobilinogen (0.2-1.0) mg/dL Ur Leukocyte Esterase (NEGATIVE) Urine HCG, Qual Salicylates (2.8-20(Therapeutic)) mg/dL Urine Opiates Screen (NEGATIVE) Ur Oxycodone Screen (NEGATIVE) Urine Methadone Screen (NEGATIVE) Acetaminophen 118 H* (10-30 (Therapeutic)) ug/mL Ur Barbiturates Screen (NEGATIVE) U Tricyclic Antidepress (NEGATIVE) Ur Phencyclidine Scrn (NEGATIVE) Ur Amphetamine Screen (NEGATIVE) U Methamphetamines Scrn (NEGATIVE) Urine MDMA Screen (NEGATIVE) U Benzodiazepines Scrn (NEGATIVE) Urine Cocaine Screen (NEGATIVE) U Marijuana (THC) Screen (NEGATIVE) Ethyl Alcohol < 3 (0) mg/dL SARS-CoV-2 RNA (AYANNA) (NEGATIVE) 04/14/21 04/14/21 04/14/21 Range/Units 13:48 13:48 13:57 WBC (5.0-10.0) 10^3/uL RBC (4.2-5.4) 10^6/uL Hgb (12.0-16.0) g/dL Hct (37.0-47.0) % MCV (80-100) fL MCH (27.0-34.0) pg MCHC (33.0-35.0) g/dL Plt Count (150-450) 10^3/uL Neut % (Auto) (42.2-75.2) % Lymph % (Auto) (20.5-50.1) % Stephens % (Auto) (2-8) % Eos % (Auto) (1.0-3.0) % Baso % (Auto) (0.0-1.0) % PT (9.0-12.0) SEC INR (0.9-1.2) APTT (22.0-34.0) SEC Sodium (136-145) mmol/L Potassium (3.5-5.1) mmol/L Chloride (98-107) mmol/L Carbon Dioxide (21-32) mmol/L Anion Gap (7-13) mEq/L BUN (7-18) mg/dL Creatinine (0.55-1.02) mg/dL Est Cr Clr Drug Dosing mL/min Estimated GFR (MDRD) BUN/Creatinine Ratio (No establ ref range) Glucose (70-99) mg/dL POC Glucose 107 H (70-99) mg/dL Lactic Acid 1.0 (0.4-2.0) mmol/L Calcium (8.5-10.1) mg/dL Phosphorus (2.6-4.7) mg/dL Magnesium (1.8-2.4) mg/dL Total Bilirubin (0.2-1.0) mg/dL AST (15-37) U/L ALT (14-59) U/L Alkaline Phosphatase (46-116) U/L Creatine Kinase (16-191) U/L Total Protein (6.4-8.2) g/dL Albumin (3.4-5.0) g/dL Globulin Albumin/Globulin Ratio Amylase (25-115) U/L Lipase (73-393) U/L Urine Color (YELLOW) Urine Appearance (CLEAR) Urine pH (5.0-9.0) Ur Specific Holladay (1.005-1.030) Urine Protein (NEGATIVE) Urine Glucose (UA) (NEGATIVE) Urine Ketones (NEGATIVE) Urine Occult Blood (NEGATIVE) Urine Nitrite (NEGATIVE) Urine Bilirubin (NEGATIVE) Urine Urobilinogen (0.2-1.0) mg/dL Ur Leukocyte Esterase (NEGATIVE) Urine HCG, Qual Salicylates < 2.8 L (2.8-20(Therapeutic)) mg/dL Urine Opiates Screen (NEGATIVE) Ur Oxycodone Screen (NEGATIVE) Urine Methadone Screen (NEGATIVE) Acetaminophen (10-30 (Therapeutic)) ug/mL Ur Barbiturates Screen (NEGATIVE) U Tricyclic Antidepress (NEGATIVE) Ur Phencyclidine Scrn (NEGATIVE) Ur Amphetamine Screen (NEGATIVE) U Methamphetamines Scrn (NEGATIVE) Urine MDMA Screen (NEGATIVE) U Benzodiazepines Scrn (NEGATIVE) Urine Cocaine Screen (NEGATIVE) U Marijuana (THC) Screen (NEGATIVE) Ethyl Alcohol (0) mg/dL SARS-CoV-2 RNA (AYANNA) (NEGATIVE) 10/03/21 10/03/21 10/03/21 Range/Units 14:24 14:24 14:24 WBC (5.0-10.0) 10^3/uL RBC (4.2-5.4) 10^6/uL Hgb (12.0-16.0) g/dL Hct (37.0-47.0) % MCV (80-100) fL MCH (27.0-34.0) pg MCHC (33.0-35.0) g/dL Plt Count (150-450) 10^3/uL Neut % (Auto) (42.2-75.2) % Lymph % (Auto) (20.5-50.1) % Stephens % (Auto) (2-8) % Eos % (Auto) (1.0-3.0) % Baso % (Auto) (0.0-1.0) % PT (9.0-12.0) SEC INR (0.9-1.2) APTT (22.0-34.0) SEC Sodium (136-145) mmol/L Potassium (3.5-5.1) mmol/L Chloride (98-107) mmol/L Carbon Dioxide (21-32) mmol/L Anion Gap (7-13) mEq/L BUN (7-18) mg/dL Creatinine (0.55-1.02) mg/dL Est Cr Clr Drug Dosing mL/min Estimated GFR (MDRD) BUN/Creatinine Ratio (No establ ref range) Glucose (70-99) mg/dL POC Glucose (70-99) mg/dL Lactic Acid (0.4-2.0) mmol/L Calcium (8.5-10.1) mg/dL Phosphorus (2.6-4.7) mg/dL Magnesium (1.8-2.4) mg/dL Total Bilirubin (0.2-1.0) mg/dL AST (15-37) U/L ALT (14-59) U/L Alkaline Phosphatase (46-116) U/L Creatine Kinase (16-191) U/L Total Protein (6.4-8.2) g/dL Albumin (3.4-5.0) g/dL Globulin Albumin/Globulin Ratio Amylase (25-115) U/L Lipase (73-393) U/L Urine Color Dark yellow (YELLOW) Urine Appearance Cloudy (CLEAR) Urine pH 7.0 (5.0-9.0) Ur Specific [place] 1.025 (1.005-1.030) Urine Protein Negative (NEGATIVE) Urine Glucose (UA) Negative (NEGATIVE) Urine Ketones Negative (NEGATIVE) Urine Occult Blood Negative (NEGATIVE) Urine Nitrite Negative (NEGATIVE) Urine Bilirubin Negative (NEGATIVE) Urine Urobilinogen 0.2 (0.2-1.0) mg/dL Ur Leukocyte Esterase Negative (NEGATIVE) Urine HCG, Qual Negative Salicylates (2.8-20(Therapeutic)) mg/dL Urine Opiates Screen Negative (NEGATIVE) Ur Oxycodone Screen Negative (NEGATIVE) Urine Methadone Screen Negative (NEGATIVE) Acetaminophen (10-30 (Therapeutic)) ug/mL Ur Barbiturates Screen Negative (NEGATIVE) U Tricyclic Antidepress Negative (NEGATIVE) Ur Phencyclidine Scrn Negative (NEGATIVE) Ur Amphetamine Screen Negative (NEGATIVE) U Methamphetamines Scrn Negative (NEGATIVE) Urine MDMA Screen Negative (NEGATIVE) U Benzodiazepines Scrn Negative (NEGATIVE) Urine Cocaine Screen Negative (NEGATIVE) U Marijuana (THC) Screen Negative (NEGATIVE) Ethyl Alcohol (0) mg/dL SARS-CoV-2 RNA (AYANNA) (NEGATIVE) 04/14/21 04/14/21 04/14/21 Range/Units 16:20 17:22 17:22 WBC (5.0-10.0) 10^3/uL RBC (4.2-5.4) 10^6/uL Hgb (12.0-16.0) g/dL Hct (37.0-47.0) % MCV (80-100) fL MCH (27.0-34.0) pg MCHC (33.0-35.0) g/dL Plt Count (150-450) 10^3/uL Neut % (Auto) (42.2-75.2) % Lymph % (Auto) (20.5-50.1) % Stephens % (Auto) (2-8) % Eos % (Auto) (1.0-3.0) % Baso % (Auto) (0.0-1.0) % PT (9.0-12.0) SEC INR (0.9-1.2) APTT (22.0-34.0) SEC Sodium 146 H (136-145) mmol/L Potassium 3.5 (3.5-5.1) mmol/L Chloride 107 (98-107) mmol/L Carbon Dioxide 21 (21-32) mmol/L Anion Gap 21.5 H (7-13) mEq/L BUN 9 (7-18) mg/dL Creatinine 0.84 (0.55-1.02) mg/dL Est Cr Clr Drug Dosing 96.13 mL/min Estimated GFR (MDRD) > 60 BUN/Creatinine Ratio 10.7 (No establ ref range) Glucose 116 H (70-99) mg/dL POC Glucose (70-99) mg/dL Lactic Acid (0.4-2.0) mmol/L Calcium 8.3 L (8.5-10.1) mg/dL Phosphorus (2.6-4.7) mg/dL Magnesium (1.8-2.4) mg/dL Total Bilirubin 0.2 (0.2-1.0) mg/dL AST 16 (15-37) U/L ALT 28 (14-59) U/L Alkaline Phosphatase 74 (46-116) U/L Creatine Kinase (16-191) U/L Total Protein 7.6 (6.4-8.2) g/dL Albumin 3.1 L (3.4-5.0) g/dL Globulin 4.5 Albumin/Globulin Ratio 0.69 Amylase (25-115) U/L Lipase (73-393) U/L Urine Color (YELLOW) Urine Appearance (CLEAR) Urine pH (5.0-9.0) Ur Specific [place] (1.005-1.030) Urine Protein (NEGATIVE) Urine Glucose (UA) (NEGATIVE) Urine Ketones (NEGATIVE) Urine Occult Blood (NEGATIVE) Urine Nitrite (NEGATIVE) Urine Bilirubin (NEGATIVE) Urine Urobilinogen (0.2-1.0) mg/dL Ur Leukocyte Esterase (NEGATIVE) Urine HCG, Qual Salicylates (2.8-20(Therapeutic)) mg/dL Urine Opiates Screen (NEGATIVE) Ur Oxycodone Screen (NEGATIVE) Urine Methadone Screen (NEGATIVE) Acetaminophen 31 H (10-30 (Therapeutic)) ug/mL Ur Barbiturates Screen (NEGATIVE) U Tricyclic Antidepress (NEGATIVE) Ur Phencyclidine Scrn (NEGATIVE) Ur Amphetamine Screen (NEGATIVE) U Methamphetamines Scrn (NEGATIVE) Urine MDMA Screen (NEGATIVE) U Benzodiazepines Scrn (NEGATIVE) Urine Cocaine Screen (NEGATIVE) U Marijuana (THC) Screen (NEGATIVE) Ethyl Alcohol (0) mg/dL SARS-CoV-2 RNA (AYANNA) Negative (NEGATIVE) 04/14/21 04/14/21 04/14/21 Range/Units 19:00 19:00 21:05 WBC (5.0-10.0) 10^3/uL RBC (4.2-5.4) 10^6/uL Hgb (12.0-16.0) g/dL Hct (37.0-47.0) % MCV (80-100) fL MCH (27.0-34.0) pg MCHC (33.0-35.0) g/dL Plt Count (150-450) 10^3/uL Neut % (Auto) (42.2-75.2) % Lymph % (Auto) (20.5-50.1) % Stephens % (Auto) (2-8) % Eos % (Auto) (1.0-3.0) % Baso % (Auto) (0.0-1.0) % PT 11.0 (9.0-12.0) SEC INR 1.1 (0.9-1.2) APTT (22.0-34.0) SEC Sodium 143 141 (136-145) mmol/L Potassium 3.2 L 3.2 L (3.5-5.1) mmol/L Chloride 107 107 (98-107) mmol/L Carbon Dioxide 20 L 17 L (21-32) mmol/L Anion Gap 19.2 H 20.2 H (7-13) mEq/L BUN 8 8 (7-18) mg/dL Creatinine 0.85 0.96 (0.55-1.02) mg/dL Est Cr Clr Drug Dosing 95.00 84.11 mL/min Estimated GFR (MDRD) > 60 > 60 BUN/Creatinine Ratio 9.4 8.3 (No establ ref range) Glucose 146 H 191 H (70-99) mg/dL POC Glucose (70-99) mg/dL Lactic Acid (0.4-2.0) mmol/L Calcium 8.0 L 8.4 L (8.5-10.1) mg/dL Phosphorus (2.6-4.7) mg/dL Magnesium (1.8-2.4) mg/dL Total Bilirubin 0.2 0.2 (0.2-1.0) mg/dL AST 20 18 (15-37) U/L ALT 27 28 (14-59) U/L Alkaline Phosphatase 71 74 (46-116) U/L Creatine Kinase (16-191) U/L Total Protein 7.1 7.6 (6.4-8.2) g/dL Albumin 2.9 L 3.1 L (3.4-5.0) g/dL Globulin 4.2 4.5 Albumin/Globulin Ratio 0.69 0.69 Amylase (25-115) U/L Lipase (73-393) U/L Urine Color (YELLOW) Urine Appearance (CLEAR) Urine pH (5.0-9.0) Ur Specific [place] (1.005-1.030) Urine Protein (NEGATIVE) Urine Glucose (UA) (NEGATIVE) Urine Ketones (NEGATIVE) Urine Occult Blood (NEGATIVE) Urine Nitrite (NEGATIVE) Urine Bilirubin (NEGATIVE) Urine Urobilinogen (0.2-1.0) mg/dL Ur Leukocyte Esterase (NEGATIVE) Urine HCG, Qual Salicylates (2.8-20(Therapeutic)) mg/dL Urine Opiates Screen (NEGATIVE) Ur Oxycodone Screen (NEGATIVE) Urine Methadone Screen (NEGATIVE) Acetaminophen 17 1 L (10-30 (Therapeutic)) ug/mL Ur Barbiturates Screen (NEGATIVE) U Tricyclic Antidepress (NEGATIVE) Ur Phencyclidine Scrn (NEGATIVE) Ur Amphetamine Screen (NEGATIVE) U Methamphetamines Scrn (NEGATIVE) Urine MDMA Screen (NEGATIVE) U Benzodiazepines Scrn (NEGATIVE) Urine Cocaine Screen (NEGATIVE) U Marijuana (THC) Screen (NEGATIVE) Ethyl Alcohol (0) mg/dL SARS-CoV-2 RNA (AYANNA) (NEGATIVE) 04/14/21 04/15/21 04/15/21 Range/Units 21:05 05:55 05:55 WBC (5.0-10.0) 10^3/uL RBC (4.2-5.4) 10^6/uL Hgb (12.0-16.0) g/dL Hct (37.0-47.0) % MCV (80-100) fL MCH (27.0-34.0) pg MCHC (33.0-35.0) g/dL Plt Count (150-450) 10^3/uL Neut % (Auto) (42.2-75.2) % Lymph % (Auto) (20.5-50.1) % Stephens % (Auto) (2-8) % Eos % (Auto) (1.0-3.0) % Baso % (Auto) (0.0-1.0) % PT 10.9 10.4 (9.0-12.0) SEC INR 1.1 1.0 (0.9-1.2) APTT (22.0-34.0) SEC Sodium 142 (136-145) mmol/L Potassium 3.5 (3.5-5.1) mmol/L Chloride 108 H (98-107) mmol/L Carbon Dioxide 18 L (21-32) mmol/L Anion Gap 19.5 H (7-13) mEq/L BUN 7 (7-18) mg/dL Creatinine 0.76 (0.55-1.02) mg/dL Est Cr Clr Drug Dosing 106.25 mL/min Estimated GFR (MDRD) > 60 BUN/Creatinine Ratio 9.2 (No establ ref range) Glucose 184 H (70-99) mg/dL POC Glucose (70-99) mg/dL Lactic Acid (0.4-2.0) mmol/L Calcium 8.8 (8.5-10.1) mg/dL Phosphorus (2.6-4.7) mg/dL Magnesium (1.8-2.4) mg/dL Total Bilirubin 0.2 (0.2-1.0) mg/dL AST 12 L (15-37) U/L ALT 27 (14-59) U/L Alkaline Phosphatase 77 (46-116) U/L Creatine Kinase (16-191) U/L Total Protein 7.9 (6.4-8.2) g/dL Albumin 3.2 L (3.4-5.0) g/dL Globulin 4.7 Albumin/Globulin Ratio 0.68 Amylase (25-115) U/L Lipase (73-393) U/L Urine Color (YELLOW) Urine Appearance (CLEAR) Urine pH (5.0-9.0) Ur Specific [place] (1.005-1.030) Urine Protein (NEGATIVE) Urine Glucose (UA) (NEGATIVE) Urine Ketones (NEGATIVE) Urine Occult Blood (NEGATIVE) Urine Nitrite (NEGATIVE) Urine Bilirubin (NEGATIVE) Urine Urobilinogen (0.2-1.0) mg/dL Ur Leukocyte Esterase (NEGATIVE) Urine HCG, Qual Salicylates (2.8-20(Therapeutic)) mg/dL Urine Opiates Screen (NEGATIVE) Ur Oxycodone Screen (NEGATIVE) Urine Methadone Screen (NEGATIVE) Acetaminophen 0 L (10-30 (Therapeutic)) ug/mL Ur Barbiturates Screen (NEGATIVE) U Tricyclic Antidepress (NEGATIVE) Ur Phencyclidine Scrn (NEGATIVE) Ur Amphetamine Screen (NEGATIVE) U Methamphetamines Scrn (NEGATIVE) Urine MDMA Screen (NEGATIVE) U Benzodiazepines Scrn (NEGATIVE) Urine Cocaine Screen (NEGATIVE) U Marijuana (THC) Screen (NEGATIVE) Ethyl Alcohol (0) mg/dL SARS-CoV-2 RNA (AYANNA) (NEGATIVE) Result Diagrams: 04/14/21 13:48 04/15/21 05:55 Sepsis Event Note - Evaluation Sepsis Screening Result: No Definite Risk - Focused Exam Vital Signs: Vital Signs Temp Pulse Resp BP Pulse Ox 04/15/21 08:00 98.4 F 68 16 127/50 L 97 04/15/21 06:00 97.4 F 58 L 16 116/71 96 04/15/21 02:58 97.7 F 52 L 17 126/66 95 04/14/21 23:40 58 L 17 112/76 95 - Problem List Review Problem List Initiated/Reviewed/Updated: Yes - My Orders Last 24 Hours: My Active Orders 04/14/21 16:38 Oxygen Therapy [RC] PRN Vital Signs [RC] Q2H Ondansetron [Zofran] 4 mg IVPUSH Q6H PRN Resuscitation Status Routine 04/14/21 Dinner Regular Diet [DIET] 04/14/21 17:26 Telemetry Monitoring [Cardiac Monitoring] [RC] 08,20 04/14/21 17:30 diphenhydrAMINE [Benadryl] 25 mg IVPUSH Q4H PRN 04/14/21 18:00 methylPREDNISolone Sod Succ [Solu-MEDROL] 125 mg IVPUSH Q6H 04/15/21 09:37 Up ad Veronica [RC] ASDIRECTED - Plan Plan:: Acetaminophen overdose, suicidal attempt, depression pt has already received Charcoal in ER. Acetylcysteine is about to finish her 3ed dose. repeat Acetaminophen, LFT, INR: OK Suicidal precaution Mental health consult High blood sugar: for A1C. DVT prophy; low risk
[2021-04-15 11:49] LABS: HEMOGLOBIN A1C 5.3 % (<5.7)
[2021-04-15] MEDS: Sodium Chloride 0.9% 10 ML Syringe FLUSH PRN (12:23)
[2021-04-15] MEDS: Ondansetron 4 MG/2 ML SDV IVPUSH PRN (12:27)
[2021-04-15 12:38] VITALS: BP 102/63
--- NOTE | 2021-04-15 13:29 | PCM.DCSUM1 ---
Discharge Summary - Hospital Course Free Text/Narrative:: Pt came to ER reporting taking about 20 tablets of Acetaminophen 500 mg at 1 PM. in ER she was treated with Charcot and started on acetylcysteine. Pt states that she is no longer suicidal at present. She denies any complain. H/o depression with h/o acetaminophen overdose few months back. She was admitted to [place] since no higher level of care beds available state wide. During her stay, she completed acetylcysteine protocol. Her LFTS, INR remained WNL. Pt remained asymptomatic except some facial redness upon the starting acetylcysteine. Benadryl and Methylpred were given prophylactically. These symptoms resolved. I counselled pt about her overdose and she was also evaluated by mental health and she was deemed stable enough to go home as per mental health. - Discharge Data Discharge Date: 04/15/21 Discharge Disposition: Home, Self-Care 01 Condition: Stable - Referral to Home Health Primary Care Physician: PCP None - Discharge Plan *PRESCRIPTION DRUG MONITORING PROGRAM REVIEWED*: No *COPY OF PRESCRIPTION DRUG MONITORING REPORT IN PATIENT BABS: No Home Medications: Home Meds Venlafaxine HCl [Venlafaxine ER] 150 mg PO DAILY 04/23/20 [History] norgestimate-ethinyl estradioL [Estarylla 0.25-0.035 mg Tablet] 1 tab PO DAILY 04/23/20 [History] Mometasone/Formoterol [Dulera 200-5 MCG] 2 puff IH BID 06/05/20 [History] Acetaminophen 500 mg PO Q6HR PRN 08/02/20 [History] Albuterol [Proventil Neb Soln] 2.5 mg INH Q4HR PRN 08/02/20 [History] Albuterol [Ventolin HFA] 2 puff INH Q6HR PRN 08/02/20 [History] Metoclopramide [Reglan] 10 mg PO Q8H 08/02/20 [History] Ondansetron [Ondansetron ODT] 4 mg PO Q6H PRN 08/02/20 [History] Topiramate [Topamax] 200 mg PO BEDTIME 08/02/20 [History] Lurasidone [Latuda] 60 mg PO WITHDINNER 10/09/20 [History] Pregabalin [Lyrica] 25 mg PO TID 10/09/20 [History] Promethazine [Phenergan] 25 mg PO Q6H PRN 10/09/20 [History] Venlafaxine HCl [Venlafaxine ER] 75 mg PO DAILY 10/09/20 [History] dilTIAZem HCL [Dilt-Xr] 180 mg PO BEDTIME 04/14/21 [History] Forms: ED Department Discharge Referrals: Radha Donato MD [Physician] - - Discharge Summary/Plan Comment DC Time >30 min.: Yes (35) Total # of Minutes for Discharge Time: 35 including progress note and discharge summary. - General Info Functional Status: Reports: Tolerating Diet - Review of Systems General: Denies: Fever HEENT: Denies: No Symptoms Pulmonary: Denies: Shortness of Breath Cardiovascular: Denies: Chest Pain Gastrointestinal: Denies: Abdominal Pain Skin: Denies: No Symptoms Neurological: Denies: Confusion Psychiatric: Reports: Depression. Denies: Confusion, Hallucinations, Suicidal Ideation (deneis at present) - Patient Data Vitals - Most Recent: Last Vital Signs Temp 98.7 F 04/15/21 12:37 Pulse 68 04/15/21 12:37 Resp 16 04/15/21 12:37 BP 102/63 04/15/21 12:37 Pulse Ox 98 04/15/21 12:37 Weight - Most Recent: 252 lb I&O - Last 24 hours: Intake & Output 04/14/21 04/15/21 04/15/21 22:59 06:59 14:59 Intake Total 240 980 Balance 240 980 Lab Results - Last 24 hrs: Laboratory Results - last 24 hr 04/14/21 04/14/21 04/14/21 Range/Units 13:48 13:48 13:48 WBC 9.0 (5.0-10.0) 10^3/uL RBC 4.88 (4.2-5.4) 10^6/uL Hgb 14.0 (12.0-16.0) g/dL Hct 41.7 (37.0-47.0) % MCV 85.5 (80-100) fL MCH 28.7 (27.0-34.0) pg MCHC 33.6 (33.0-35.0) g/dL Plt Count 343 (150-450) 10^3/uL Neut % (Auto) 62.2 (42.2-75.2) % Lymph % (Auto) 30.2 (20.5-50.1) % [place] % (Auto) 5.8 (2-8) % Eos % (Auto) 1.6 (1.0-3.0) % Baso % (Auto) 0.2 (0.0-1.0) % PT 10.2 (9.0-12.0) SEC INR 1.0 (0.9-1.2) APTT 28.1 (22.0-34.0) SEC Sodium 141 (136-145) mmol/L Potassium 3.8 (3.5-5.1) mmol/L Chloride 106 (98-107) mmol/L Carbon Dioxide 21 (21-32) mmol/L Anion Gap 17.8 H (7-13) mEq/L BUN 10 (7-18) mg/dL Creatinine 0.91 (0.55-1.02) mg/dL Est Cr Clr Drug Dosing 88.74 mL/min Estimated GFR (MDRD) > 60 BUN/Creatinine Ratio 11.0 (No establ ref range) Glucose 112 H (70-99) mg/dL POC Glucose (70-99) mg/dL Hemoglobin A1c (<5.7) % Lactic Acid (0.4-2.0) mmol/L Calcium 8.7 (8.5-10.1) mg/dL Phosphorus 3.4 (2.6-4.7) mg/dL Magnesium 1.9 (1.8-2.4) mg/dL Total Bilirubin 0.3 (0.2-1.0) mg/dL AST 17 (15-37) U/L ALT 28 (14-59) U/L Alkaline Phosphatase 92 (46-116) U/L Creatine Kinase 95 (16-191) U/L Total Protein 8.3 H (6.4-8.2) g/dL Albumin 3.6 (3.4-5.0) g/dL Globulin 4.7 Albumin/Globulin Ratio 0.8 Amylase 75 (25-115) U/L Lipase 330 (73-393) U/L Urine Color (YELLOW) Urine Appearance (CLEAR) Urine pH (5.0-9.0) Ur Specific [place] (1.005-1.030) Urine Protein (NEGATIVE) Urine Glucose (UA) (NEGATIVE) Urine Ketones (NEGATIVE) Urine Occult Blood (NEGATIVE) Urine Nitrite (NEGATIVE) Urine Bilirubin (NEGATIVE) Urine Urobilinogen (0.2-1.0) mg/dL Ur Leukocyte Esterase (NEGATIVE) Urine HCG, Qual Salicylates (2.8-20(Therapeutic)) mg/dL Urine Opiates Screen (NEGATIVE) Ur Oxycodone Screen (NEGATIVE) Urine Methadone Screen (NEGATIVE) Acetaminophen 118 H* (10-30 (Therapeutic)) ug/mL Ur Barbiturates Screen (NEGATIVE) U Tricyclic Antidepress (NEGATIVE) Ur Phencyclidine Scrn (NEGATIVE) Ur Amphetamine Screen (NEGATIVE) U Methamphetamines Scrn (NEGATIVE) Urine MDMA Screen (NEGATIVE) U Benzodiazepines Scrn (NEGATIVE) Urine Cocaine Screen (NEGATIVE) U Marijuana (THC) Screen (NEGATIVE) Ethyl Alcohol < 3 (0) mg/dL SARS-CoV-2 RNA (AYANNA) (NEGATIVE) 04/14/21 04/14/21 04/14/21 Range/Units 13:48 13:48 13:57 WBC (5.0-10.0) 10^3/uL RBC (4.2-5.4) 10^6/uL Hgb (12.0-16.0) g/dL Hct (37.0-47.0) % MCV (80-100) fL MCH (27.0-34.0) pg MCHC (33.0-35.0) g/dL Plt Count (150-450) 10^3/uL Neut % (Auto) (42.2-75.2) % Lymph % (Auto) (20.5-50.1) % [place] % (Auto) (2-8) % Eos % (Auto) (1.0-3.0) % Baso % (Auto) (0.0-1.0) % PT (9.0-12.0) SEC INR (0.9-1.2) APTT (22.0-34.0) SEC Sodium (136-145) mmol/L Potassium (3.5-5.1) mmol/L Chloride (98-107) mmol/L Carbon Dioxide (21-32) mmol/L Anion Gap (7-13) mEq/L BUN (7-18) mg/dL Creatinine (0.55-1.02) mg/dL Est Cr Clr Drug Dosing mL/min Estimated GFR (MDRD) BUN/Creatinine Ratio (No establ ref range) Glucose (70-99) mg/dL POC Glucose 107 H (70-99) mg/dL Hemoglobin A1c (<5.7) % Lactic Acid 1.0 (0.4-2.0) mmol/L Calcium (8.5-10.1) mg/dL Phosphorus (2.6-4.7) mg/dL Magnesium (1.8-2.4) mg/dL Total Bilirubin (0.2-1.0) mg/dL AST (15-37) U/L ALT (14-59) U/L Alkaline Phosphatase (46-116) U/L Creatine Kinase (16-191) U/L Total Protein (6.4-8.2) g/dL Albumin (3.4-5.0) g/dL Globulin Albumin/Globulin Ratio Amylase (25-115) U/L Lipase (73-393) U/L Urine Color (YELLOW) Urine Appearance (CLEAR) Urine pH (5.0-9.0) Ur Specific [place] (1.005-1.030) Urine Protein (NEGATIVE) Urine Glucose (UA) (NEGATIVE) Urine Ketones (NEGATIVE) Urine Occult Blood (NEGATIVE) Urine Nitrite (NEGATIVE) Urine Bilirubin (NEGATIVE) Urine Urobilinogen (0.2-1.0) mg/dL Ur Leukocyte Esterase (NEGATIVE) Urine HCG, Qual Salicylates < 2.8 L (2.8-20(Therapeutic)) mg/dL Urine Opiates Screen (NEGATIVE) Ur Oxycodone Screen (NEGATIVE) Urine Methadone Screen (NEGATIVE) Acetaminophen (10-30 (Therapeutic)) ug/mL Ur Barbiturates Screen (NEGATIVE) U Tricyclic Antidepress (NEGATIVE) Ur Phencyclidine Scrn (NEGATIVE) Ur Amphetamine Screen (NEGATIVE) U Methamphetamines Scrn (NEGATIVE) Urine MDMA Screen (NEGATIVE) U Benzodiazepines Scrn (NEGATIVE) Urine Cocaine Screen (NEGATIVE) U Marijuana (THC) Screen (NEGATIVE) Ethyl Alcohol (0) mg/dL SARS-CoV-2 RNA (AYANNA) (NEGATIVE) 04/14/21 04/14/21 04/14/21 Range/Units 14:24 14:24 14:24 WBC (5.0-10.0) 10^3/uL RBC (4.2-5.4) 10^6/uL Hgb (12.0-16.0) g/dL Hct (37.0-47.0) % MCV (80-100) fL MCH (27.0-34.0) pg MCHC (33.0-35.0) g/dL Plt Count (150-450) 10^3/uL Neut % (Auto) (42.2-75.2) % Lymph % (Auto) (20.5-50.1) % [place] % (Auto) (2-8) % Eos % (Auto) (1.0-3.0) % Baso % (Auto) (0.0-1.0) % PT (9.0-12.0) SEC INR (0.9-1.2) APTT (22.0-34.0) SEC Sodium (136-145) mmol/L Potassium (3.5-5.1) mmol/L Chloride (98-107) mmol/L Carbon Dioxide (21-32) mmol/L Anion Gap (7-13) mEq/L BUN (7-18) mg/dL Creatinine (0.55-1.02) mg/dL Est Cr Clr Drug Dosing mL/min Estimated GFR (MDRD) BUN/Creatinine Ratio (No establ ref range) Glucose (70-99) mg/dL POC Glucose (70-99) mg/dL Hemoglobin A1c (<5.7) % Lactic Acid (0.4-2.0) mmol/L Calcium (8.5-10.1) mg/dL Phosphorus (2.6-4.7) mg/dL Magnesium (1.8-2.4) mg/dL Total Bilirubin (0.2-1.0) mg/dL AST (15-37) U/L ALT (14-59) U/L Alkaline Phosphatase (46-116) U/L Creatine Kinase (16-191) U/L Total Protein (6.4-8.2) g/dL Albumin (3.4-5.0) g/dL Globulin Albumin/Globulin Ratio Amylase (25-115) U/L Lipase (73-393) U/L Urine Color Dark yellow (YELLOW) Urine Appearance Cloudy (CLEAR) Urine pH 7.0 (5.0-9.0) Ur Specific [place] 1.025 (1.005-1.030) Urine Protein Negative (NEGATIVE) Urine Glucose (UA) Negative (NEGATIVE) Urine Ketones Negative (NEGATIVE) Urine Occult Blood Negative (NEGATIVE) Urine Nitrite Negative (NEGATIVE) Urine Bilirubin Negative (NEGATIVE) Urine Urobilinogen 0.2 (0.2-1.0) mg/dL Ur Leukocyte Esterase Negative (NEGATIVE) Urine HCG, Qual Negative Salicylates (2.8-20(Therapeutic)) mg/dL Urine Opiates Screen Negative (NEGATIVE) Ur Oxycodone Screen Negative (NEGATIVE) Urine Methadone Screen Negative (NEGATIVE) Acetaminophen (10-30 (Therapeutic)) ug/mL Ur Barbiturates Screen Negative (NEGATIVE) U Tricyclic Antidepress Negative (NEGATIVE) Ur Phencyclidine Scrn Negative (NEGATIVE) Ur Amphetamine Screen Negative (NEGATIVE) U Methamphetamines Scrn Negative (NEGATIVE) Urine MDMA Screen Negative (NEGATIVE) U Benzodiazepines Scrn Negative (NEGATIVE) Urine Cocaine Screen Negative (NEGATIVE) U Marijuana (THC) Screen Negative (NEGATIVE) Ethyl Alcohol (0) mg/dL SARS-CoV-2 RNA (AYANNA) (NEGATIVE) 04/14/21 04/14/21 04/14/21 Range/Units 16:20 17:22 17:22 WBC (5.0-10.0) 10^3/uL RBC (4.2-5.4) 10^6/uL Hgb (12.0-16.0) g/dL Hct (37.0-47.0) % MCV (80-100) fL MCH (27.0-34.0) pg MCHC (33.0-35.0) g/dL Plt Count (150-450) 10^3/uL Neut % (Auto) (42.2-75.2) % Lymph % (Auto) (20.5-50.1) % [place] % (Auto) (2-8) % Eos % (Auto) (1.0-3.0) % Baso % (Auto) (0.0-1.0) % PT (9.0-12.0) SEC INR (0.9-1.2) APTT (22.0-34.0) SEC Sodium 146 H (136-145) mmol/L Potassium 3.5 (3.5-5.1) mmol/L Chloride 107 (98-107) mmol/L Carbon Dioxide 21 (21-32) mmol/L Anion Gap 21.5 H (7-13) mEq/L BUN 9 (7-18) mg/dL Creatinine 0.84 (0.55-1.02) mg/dL Est Cr Clr Drug Dosing 96.13 mL/min Estimated GFR (MDRD) > 60 BUN/Creatinine Ratio 10.7 (No establ ref range) Glucose 116 H (70-99) mg/dL POC Glucose (70-99) mg/dL Hemoglobin A1c (<5.7) % Lactic Acid (0.4-2.0) mmol/L Calcium 8.3 L (8.5-10.1) mg/dL Phosphorus (2.6-4.7) mg/dL Magnesium (1.8-2.4) mg/dL Total Bilirubin 0.2 (0.2-1.0) mg/dL AST 16 (15-37) U/L ALT 28 (14-59) U/L Alkaline Phosphatase 74 (46-116) U/L Creatine Kinase (16-191) U/L Total Protein 7.6 (6.4-8.2) g/dL Albumin 3.1 L (3.4-5.0) g/dL Globulin 4.5 Albumin/Globulin Ratio 0.69 Amylase (25-115) U/L Lipase (73-393) U/L Urine Color (YELLOW) Urine Appearance (CLEAR) Urine pH (5.0-9.0) Ur Specific [place] (1.005-1.030) Urine Protein (NEGATIVE) Urine Glucose (UA) (NEGATIVE) Urine Ketones (NEGATIVE) Urine Occult Blood (NEGATIVE) Urine Nitrite (NEGATIVE) Urine Bilirubin (NEGATIVE) Urine Urobilinogen (0.2-1.0) mg/dL Ur Leukocyte Esterase (NEGATIVE) Urine HCG, Qual Salicylates (2.8-20(Therapeutic)) mg/dL Urine Opiates Screen (NEGATIVE) Ur Oxycodone Screen (NEGATIVE) Urine Methadone Screen (NEGATIVE) Acetaminophen 31 H (10-30 (Therapeutic)) ug/mL Ur Barbiturates Screen (NEGATIVE) U Tricyclic Antidepress (NEGATIVE) Ur Phencyclidine Scrn (NEGATIVE) Ur Amphetamine Screen (NEGATIVE) U Methamphetamines Scrn (NEGATIVE) Urine MDMA Screen (NEGATIVE) U Benzodiazepines Scrn (NEGATIVE) Urine Cocaine Screen (NEGATIVE) U Marijuana (THC) Screen (NEGATIVE) Ethyl Alcohol (0) mg/dL SARS-CoV-2 RNA (AYANNA) Negative (NEGATIVE) 04/14/21 04/14/21 04/14/21 Range/Units 19:00 19:00 21:05 WBC (5.0-10.0) 10^3/uL RBC (4.2-5.4) 10^6/uL Hgb (12.0-16.0) g/dL Hct (37.0-47.0) % MCV (80-100) fL MCH (27.0-34.0) pg MCHC (33.0-35.0) g/dL Plt Count (150-450) 10^3/uL Neut % (Auto) (42.2-75.2) % Lymph % (Auto) (20.5-50.1) % [place] % (Auto) (2-8) % Eos % (Auto) (1.0-3.0) % Baso % (Auto) (0.0-1.0) % PT 11.0 (9.0-12.0) SEC INR 1.1 (0.9-1.2) APTT (22.0-34.0) SEC Sodium 143 141 (136-145) mmol/L Potassium 3.2 L 3.2 L (3.5-5.1) mmol/L Chloride 107 107 (98-107) mmol/L Carbon Dioxide 20 L 17 L (21-32) mmol/L Anion Gap 19.2 H 20.2 H (7-13) mEq/L BUN 8 8 (7-18) mg/dL Creatinine 0.85 0.96 (0.55-1.02) mg/dL Est Cr Clr Drug Dosing 95.00 84.11 mL/min Estimated GFR (MDRD) > 60 > 60 BUN/Creatinine Ratio 9.4 8.3 (No establ ref range) Glucose 146 H 191 H (70-99) mg/dL POC Glucose (70-99) mg/dL Hemoglobin A1c (<5.7) % Lactic Acid (0.4-2.0) mmol/L Calcium 8.0 L 8.4 L (8.5-10.1) mg/dL Phosphorus (2.6-4.7) mg/dL Magnesium (1.8-2.4) mg/dL Total Bilirubin 0.2 0.2 (0.2-1.0) mg/dL AST 20 18 (15-37) U/L ALT 27 28 (14-59) U/L Alkaline Phosphatase 71 74 (46-116) U/L Creatine Kinase (16-191) U/L Total Protein 7.1 7.6 (6.4-8.2) g/dL Albumin 2.9 L 3.1 L (3.4-5.0) g/dL Globulin 4.2 4.5 Albumin/Globulin Ratio 0.69 0.69 Amylase (25-115) U/L Lipase (73-393) U/L Urine Color (YELLOW) Urine Appearance (CLEAR) Urine pH (5.0-9.0) Ur Specific [place] (1.005-1.030) Urine Protein (NEGATIVE) Urine Glucose (UA) (NEGATIVE) Urine Ketones (NEGATIVE) Urine Occult Blood (NEGATIVE) Urine Nitrite (NEGATIVE) Urine Bilirubin (NEGATIVE) Urine Urobilinogen (0.2-1.0) mg/dL Ur Leukocyte Esterase (NEGATIVE) Urine HCG, Qual Salicylates (2.8-20(Therapeutic)) mg/dL Urine Opiates Screen (NEGATIVE) Ur Oxycodone Screen (NEGATIVE) Urine Methadone Screen (NEGATIVE) Acetaminophen 17 1 L (10-30 (Therapeutic)) ug/mL Ur Barbiturates Screen (NEGATIVE) U Tricyclic Antidepress (NEGATIVE) Ur Phencyclidine Scrn (NEGATIVE) Ur Amphetamine Screen (NEGATIVE) U Methamphetamines Scrn (NEGATIVE) Urine MDMA Screen (NEGATIVE) U Benzodiazepines Scrn (NEGATIVE) Urine Cocaine Screen (NEGATIVE) U Marijuana (THC) Screen (NEGATIVE) Ethyl Alcohol (0) mg/dL SARS-CoV-2 RNA (AYANNA) (NEGATIVE) 04/14/21 04/15/21 04/15/21 Range/Units 21:05 05:55 05:55 WBC (5.0-10.0) 10^3/uL RBC (4.2-5.4) 10^6/uL Hgb (12.0-16.0) g/dL Hct (37.0-47.0) % MCV (80-100) fL MCH (27.0-34.0) pg MCHC (33.0-35.0) g/dL Plt Count (150-450) 10^3/uL Neut % (Auto) (42.2-75.2) % Lymph % (Auto) (20.5-50.1) % [place] % (Auto) (2-8) % Eos % (Auto) (1.0-3.0) % Baso % (Auto) (0.0-1.0) % PT 10.9 10.4 (9.0-12.0) SEC INR 1.1 1.0 (0.9-1.2) APTT (22.0-34.0) SEC Sodium 142 (136-145) mmol/L Potassium 3.5 (3.5-5.1) mmol/L Chloride 108 H (98-107) mmol/L Carbon Dioxide 18 L (21-32) mmol/L Anion Gap 19.5 H (7-13) mEq/L BUN 7 (7-18) mg/dL Creatinine 0.76 (0.55-1.02) mg/dL Est Cr Clr Drug Dosing 106.25 mL/min Estimated GFR (MDRD) > 60 BUN/Creatinine Ratio 9.2 (No establ ref range) Glucose 184 H (70-99) mg/dL POC Glucose (70-99) mg/dL Hemoglobin A1c (<5.7) % Lactic Acid (0.4-2.0) mmol/L Calcium 8.8 (8.5-10.1) mg/dL Phosphorus (2.6-4.7) mg/dL Magnesium (1.8-2.4) mg/dL Total Bilirubin 0.2 (0.2-1.0) mg/dL AST 12 L (15-37) U/L ALT 27 (14-59) U/L Alkaline Phosphatase 77 (46-116) U/L Creatine Kinase (16-191) U/L Total Protein 7.9 (6.4-8.2) g/dL Albumin 3.2 L (3.4-5.0) g/dL Globulin 4.7 Albumin/Globulin Ratio 0.68 Amylase (25-115) U/L Lipase (73-393) U/L Urine Color (YELLOW) Urine Appearance (CLEAR) Urine pH (5.0-9.0) Ur Specific [place] (1.005-1.030) Urine Protein (NEGATIVE) Urine Glucose (UA) (NEGATIVE) Urine Ketones (NEGATIVE) Urine Occult Blood (NEGATIVE) Urine Nitrite (NEGATIVE) Urine Bilirubin (NEGATIVE) Urine Urobilinogen (0.2-1.0) mg/dL Ur Leukocyte Esterase (NEGATIVE) Urine HCG, Qual Salicylates (2.8-20(Therapeutic)) mg/dL Urine Opiates Screen (NEGATIVE) Ur Oxycodone Screen (NEGATIVE) Urine Methadone Screen (NEGATIVE) Acetaminophen 0 L (10-30 (Therapeutic)) ug/mL Ur Barbiturates Screen (NEGATIVE) U Tricyclic Antidepress (NEGATIVE) Ur Phencyclidine Scrn (NEGATIVE) Ur Amphetamine Screen (NEGATIVE) U Methamphetamines Scrn (NEGATIVE) Urine MDMA Screen (NEGATIVE) U Benzodiazepines Scrn (NEGATIVE) Urine Cocaine Screen (NEGATIVE) U Marijuana (THC) Screen (NEGATIVE) Ethyl Alcohol (0) mg/dL SARS-CoV-2 RNA (AYANNA) (NEGATIVE) 04/15/21 Range/Units 05:55 WBC (5.0-10.0) 10^3/uL RBC (4.2-5.4) 10^6/uL Hgb (12.0-16.0) g/dL Hct (37.0-47.0) % MCV (80-100) fL MCH (27.0-34.0) pg MCHC (33.0-35.0) g/dL Plt Count (150-450) 10^3/uL Neut % (Auto) (42.2-75.2) % Lymph % (Auto) (20.5-50.1) % [place] % (Auto) (2-8) % Eos % (Auto) (1.0-3.0) % Baso % (Auto) (0.0-1.0) % PT (9.0-12.0) SEC INR (0.9-1.2) APTT (22.0-34.0) SEC Sodium (136-145) mmol/L Potassium (3.5-5.1) mmol/L Chloride (98-107) mmol/L Carbon Dioxide (21-32) mmol/L Anion Gap (7-13) mEq/L BUN (7-18) mg/dL Creatinine (0.55-1.02) mg/dL Est Cr Clr Drug Dosing mL/min Estimated GFR (MDRD) BUN/Creatinine Ratio (No establ ref range) Glucose (70-99) mg/dL POC Glucose (70-99) mg/dL Hemoglobin A1c 5.3 (<5.7) % Lactic Acid (0.4-2.0) mmol/L Calcium (8.5-10.1) mg/dL Phosphorus (2.6-4.7) mg/dL Magnesium (1.8-2.4) mg/dL Total Bilirubin (0.2-1.0) mg/dL AST (15-37) U/L ALT (14-59) U/L Alkaline Phosphatase (46-116) U/L Creatine Kinase (16-191) U/L Total Protein (6.4-8.2) g/dL Albumin (3.4-5.0) g/dL Globulin Albumin/Globulin Ratio Amylase (25-115) U/L Lipase (73-393) U/L Urine Color (YELLOW) Urine Appearance (CLEAR) Urine pH (5.0-9.0) Ur Specific [place] (1.005-1.030) Urine Protein (NEGATIVE) Urine Glucose (UA) (NEGATIVE) Urine Ketones (NEGATIVE) Urine Occult Blood (NEGATIVE) Urine Nitrite (NEGATIVE) Urine Bilirubin (NEGATIVE) Urine Urobilinogen (0.2-1.0) mg/dL Ur Leukocyte Esterase (NEGATIVE) Urine HCG, Qual Salicylates (2.8-20(Therapeutic)) mg/dL Urine Opiates Screen (NEGATIVE) Ur Oxycodone Screen (NEGATIVE) Urine Methadone Screen (NEGATIVE) Acetaminophen (10-30 (Therapeutic)) ug/mL Ur Barbiturates Screen (NEGATIVE) U Tricyclic Antidepress (NEGATIVE) Ur Phencyclidine Scrn (NEGATIVE) Ur Amphetamine Screen (NEGATIVE) U Methamphetamines Scrn (NEGATIVE) Urine MDMA Screen (NEGATIVE) U Benzodiazepines Scrn (NEGATIVE) Urine Cocaine Screen (NEGATIVE) U Marijuana (THC) Screen (NEGATIVE) Ethyl Alcohol (0) mg/dL SARS-CoV-2 RNA (AYANNA) (NEGATIVE) Med Orders - Current: Current Medications Diphenhydramine HCl (Diphenhydramine 50 Mg/Ml Sdv) 25 mg IVPUSH Q4H PRN PRN Reason: Itching Last Admin: 04/15/21 12:30 Dose: 25 mg Documented by: Methylprednisolone Sodium Succinate (Methylprednisolone Sodium Succinate 125 Mg/2 Ml Sdv) 125 mg IVPUSH Q6H PAPA Last Admin: 04/15/21 12:23 Dose: 125 mg Documented by: Ondansetron HCl (Ondansetron 4 Mg/2 Ml Sdv) 4 mg IVPUSH Q6H PRN PRN Reason: Nausea/Vomiting Last Admin: 04/15/21 12:27 Dose: 4 mg Documented by: Sodium Chloride (Sodium Chloride 0.9% 10 Ml Syringe) 10 ml FLUSH ASDIRECTED PRN PRN Reason: Keep Vein Open Last Admin: 04/15/21 12:23 Dose: 10 ml Documented by: Discontinued Medications Acetylcysteine (Acetylcysteine 20% 200 Mg/Ml 30 Ml Nebulizer Soln Sdv) Confirm Administered Dose 12,000 mg .ROUTE .STK-MED ONE Stop: 04/14/21 20:47 Last Admin: 04/14/21 21:26 Dose: Not Given Documented by: Charcoal (Activated Charcoal/Water Susp 50 Gm/240 Ml Tube) 50 gm PO ONETIME ONE Stop: 04/14/21 13:35 Last Admin: 04/14/21 13:49 Dose: 50 gm Documented by: Sodium Chloride (Normal Saline) 1,000 mls @ 999 mls/hr IV .BOLUS ONE Stop: 04/14/21 14:34 Last Admin: 04/14/21 14:32 Dose: 999 mls/hr Documented by: Acetylcysteine 14,000 mg/ (Dextrose/Water) 270 mls @ 200 mls/hr IV ONETIME ONE; Protocol Stop: 04/14/21 14:48 Last Admin: 04/14/21 18:05 Dose: Not Given Documented by: Acetylcysteine 4,500 mg/ (Dextrose/Water) 222.5 mls @ 50 mls/hr IV ONETIME ONE; Protocol Stop: 04/14/21 18:18 Last Admin: 04/14/21 18:06 Dose: Not Given Documented by: Acetylcysteine 18,000 mg/ (Dextrose/Water) 290 mls @ 200 mls/hr IV ONETIME ONE; Protocol Stop: 04/14/21 14:56 Last Admin: 04/14/21 14:32 Dose: 200 mls/hr Documented by: Acetylcysteine 6,000 mg/ (Dextrose/Water) 230 mls @ 50 mls/hr IV ONETIME ONE; Protocol Stop: 04/14/21 18:33 Last Admin: 04/14/21 18:05 Dose: Not Given Documented by: Acetylcysteine 6,000 mg/ (Dextrose/Water) 230 mls @ 57.5 mls/hr IV ONETIME ONE; Protocol Stop: 04/14/21 21:14 Acetylcysteine 6,000 mg/ (Dextrose/Water) 530 mls @ 132.5 mls/hr IV ONETIME ONE; Protocol Stop: 04/14/21 21:14 Last Admin: 04/14/21 18:01 Dose: 132.5 mls/hr Documented by: Acetylcysteine 10,000 mg/ (Dextrose/Water) 1,050 mls @ 65.625 mls/hr IV ONETIME ONE; Protocol Stop: 04/15/21 13:14 Last Admin: 04/14/21 22:08 Dose: 65.625 mls/hr Documented by: Sodium Chloride (Sodium Chloride 0.9% 10 Ml Syringe) 10 ml FLUSH ASDIRECTED PRN PRN Reason: Keep Vein Open Last Admin: 04/14/21 17:46 Dose: 10 ml Documented by: - Exam Quality Assessment: Denies: Supplemental Oxygen General: Reports: Alert, Oriented HEENT: Reports: EOMI Lungs: Reports: Clear to Auscultation, Normal Respiratory Effort Cardiovascular: Reports: Regular Rate, Regular Rhythm GI/Abdominal Exam: Soft, Non-Tender Skin: Reports: Warm, Dry Neurological: Reports: No New Focal Deficit Psy/Mental Status: Reports: Alert, Normal Affect
== END 2021-04-15 16:05 | disposition home or self-care (01) | DRG 817 ==
LOC: DL.ED 13:20 → DL.MS 15:38
PROVIDERS: ADMIT Internal Medicine; ATTEND Internal Medicine
DX: T39.1X2A Poisoning by 4-Aminophenol derivatives, intentional self-harm, initial encounter (principal); F32.A Depression, unspecified; M79.7 Fibromyalgia; J45.909 Unspecified asthma, uncomplicated; Z88.0 Allergy status to penicillin; Z88.6 Allergy status to analgesic agent; Z79.899 Other long term (current) drug therapy
CPT/HCPCS: 36415; 80053; 80143; 80179; 80305-QW; 80307; 81003; 81025; 82150; 82550; 82947; 83036; 83605; 83690; 83735; 84100; 85025; 85610; 85730; 93005; 96365; 99285-25; J0132; J1200; J2405; J2930; J7030; J7060; U0002